=== PATIENT | male | born 1945 | race Caucasian/White ===

== ENCOUNTER 2022-05-16 10:50 | Inpatient (IN) ==
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
[2022-05-16 11:37] LABS: Basophils # (auto) 0.05 K/uL (0-0.2); Basophils % (auto) 0.7 %; Eosinophils # (auto) 0.11 K/uL (0-0.50); Eosinophils % (auto) 1.4 %; Hematocrit (blood only) 46.7 % (42.0-52.0); Hemoglobin 15.5 g/dl (14.0-18.0); Immature Granulocytes # (auto) 0.03 K/uL (0.01-0.20); Immature Granulocytes % (auto) 0.4 %; Lymphocytes # (auto) 1.13 K/uL (1.2-3.4); Lymphocytes % (auto) 14.7 %; Mean Corpuscular Hemoglobin 28.8 pg (25.0-34.0); Mean Corpuscular Hgb Conc 33.2 g/dL (32.0-36.0); Mean Corpuscular Volume 86.8 fL (80.0-100.0); Mean Platelet Volume 9.7 fL (9.4-12.4); Monocytes # (auto) 0.84 K/uL (0.11-0.59); Monocytes % (auto) 10.9 %; Neutrophils # (auto) 5.53 K/uL (1.40-6.50); Neutrophils % (auto) 71.9 %; Platelet Count 204 K/uL (130-400); RDW Coefficient of Variation 14.5 % (11.5-14.5); RDW Standard Deviation 45.9 fL (36.4-46.3); Red Blood Count 5.38 M/uL (4.70-6.10); White Blood Count 7.69 K/ul (4.8-10.8)
--- NOTE | 2022-05-16 11:40 | XRay Report ---
XR foot LT min 3V routine, XR ankle LT min 3V routine CLINICAL HISTORY: L foot and ankle edema, hx gout TECHNIQUE: 3 views of the left foot and 3 views of the left ankle were obtained. Comparison: None available at the time of this dictation. FINDINGS: No fractures are present. Mild degenerative changes are seen most prominent in the interphalangeal irma ints. Soft tissue swelling seen about the foot and ankle. No focal soft tissue mass is seen. IMPRESSION: Degenerative changes compatible with mild osteoarthritis. Diffuse soft tissue swelling without eviden t tophaceous foci. ACT 112: Negative or not required by law. Electronically signed by: Shoaib Zhang M.D. 05/16/2022 11:38 AM
[2022-05-16 11:54] LABS: Albumin Level 4.2 gm/dl (3.4-5.0); BUN Creatinine Ratio 22.7 (10-20); Calcium 10.3 mg/dl (8.5-10.1); Creatinine Clr Calc Pharmacy 52.9 ml/min; Est GFR (African American) 50.6 ml/min; Est GFR (Non-African American) 43.7 ml/min; Globulin 4.2 gm/dl (2.5-4.0); Potassium 3.6 mmol/L (3.5-5.1); Total Protein 8.4 gm/dl (6.0-8.3)
[2022-05-16 12:11] LABS: Appearance Urine Cloudy (Clear); Bacteria Urine Automated Negative (Negative); Blood Urine Negative (Negative); Color Urine Dark Yellow; Glucose Urine UA Negative (Negative); Ketones Urine Trace (Negative); Leukocyte Esterase Urine Trace (Negative); Nitrite Urine Positive (Negative); Protein Urine 1+ (Negative); Specific Gravity Urine 1.025 (1.000-1.030); Urobilinogen Urine Positive (Negative); pH Urine 5.5 (4.5-7.5)
[2022-05-16 12:13] LABS: INR 2.2 (0.9-1.1); Partial Thromboplastin Ratio 1.5; Partial Thromboplastin Time 42.1 Seconds (21.0-31.0); Prothrombin Time 22.9 Seconds (9.0-12.0)
[2022-05-16 12:23] LABS: Bilirubin Urine 1+ (Negative)
[2022-05-16 12:26] LABS: Cast Urine Automated >30 /lpf (0-5)
--- NOTE | 2022-05-16 13:58 | Ultrasound Report ---
LEFT LOWER EXTREMITY VENOUS DOPPLER HISTORY: Acute pain and swelling of the left lower extremity leg pain COMPARISON STUDY: None. FINDINGS: There is normal compressibility, flow, and augmentation within the left lower extremity romulo p venous system. Subcutaneous edema. IMPRESSION: No DVT within the left lower extremity. ACT 112: Negative or not required by law. Electronically signed by: Harpreet Franco M.D. 05/16/2022 1:57 PM
[2022-05-16] MEDS ORDERED: cefTRIAXone SODIUM 2,000 MG/70 ML BAG IV STA (14:13)
[2022-05-16] MEDS ORDERED: HYDROCODONE/ACETAMOPHEN 5/325MG TAB PO STA (14:16)
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
[2022-05-16 15:21] LABS: C Reactive Protein 14.42 mg/dl (0-0.5)
[2022-05-16 18:21] LABS: Estimated Average Glucose 137 mg/dl; Hemoglobin A1C 6.4 % (4.5-5.6)
[2022-05-16] MEDS ORDERED: ACETAMINOPHEN 325 MG TAB PO PRN (19:25)
[2022-05-16] MEDS ORDERED: WARFARIN SOD 5 MG TAB PO SCH (19:30)
[2022-05-16] MEDS: WARFARIN SOD 5 MG TAB PO SCH (20:58)
[2022-05-16] MEDS: ATENOLOL 50 MG TABLET PO SCH (20:59)
[2022-05-16] MEDS: SIMVASTATIN 40 MG TAB PO SCH (20:59)
[2022-05-16] MEDS: CEFEPIME 2,000 MG in SYRINGE 0 ML IV SCH (20:59)
[2022-05-16] MEDS ORDERED: lisinopril 40 MG TAB PO SCH (21:00)
[2022-05-16] MEDS: oxyCODONE HCL IR 5 MG TAB (IMMEDIATE RELEASE) PO PRN (21:10)
[2022-05-16] MEDS: DOXYCYCLINE HYCLATE 100 MG in DEXTROSE 5% 100 ML IV SCH (21:11)
[2022-05-17] MEDS: oxyCODONE HCL IR 5 MG TAB (IMMEDIATE RELEASE) PO PRN ×2 (06:02→19:56)
[2022-05-17 06:41] LABS: INR 2.2 (0.9-1.1); Prothrombin Time 22.2 Seconds (9.0-12.0)
[2022-05-17] MEDS: CHOLECALCIFEROL 1,000 UNITS 25 MCG TAB PO SCH (08:01)
[2022-05-17] MEDS: ATENOLOL 50 MG TABLET PO SCH ×2 (08:01→20:00)
[2022-05-17] MEDS: DOXYCYCLINE HYCLATE 100 MG in DEXTROSE 5% 100 ML IV SCH ×2 (08:05→19:56)
[2022-05-17 08:55] LABS: BUN Creatinine Ratio 26.6 (10-20); Calcium 9.4 mg/dl (8.5-10.1); Creatinine Clr Calc Pharmacy 61.7 ml/min; Est GFR (African American) 61.3 ml/min; Est GFR (Non-African American) 52.9 ml/min; Potassium 3.6 mmol/L (3.5-5.1)
[2022-05-17 08:56] LABS: Basophils # (auto) 0.05 K/uL (0-0.2); Basophils % (auto) 0.6 %; Eosinophils # (auto) 0.14 K/uL (0-0.50); Eosinophils % (auto) 1.8 %; Hemoglobin 13.7 g/dl (14.0-18.0); Immature Granulocytes # (auto) 0.01 K/uL (0.01-0.20); Immature Granulocytes % (auto) 0.1 %; Lymphocytes % (auto) 12.6 %; Mean Corpuscular Hemoglobin 28.7 pg (25.0-34.0); Mean Corpuscular Hgb Conc 33.4 g/dL (32.0-36.0); Mean Corpuscular Volume 85.8 fL (80.0-100.0); Mean Platelet Volume 10.6 fL (9.4-12.4); Monocytes # (auto) 0.78 K/uL (0.11-0.59); Monocytes % (auto) 9.8 %; Neutrophils # (auto) 5.96 K/uL (1.40-6.50); Neutrophils % (auto) 75.1 %; Platelet Count 198 K/uL (130-400); RDW Coefficient of Variation 14.1 % (11.5-14.5); RDW Standard Deviation 44.3 fL (36.4-46.3); Red Blood Count 4.78 M/uL (4.70-6.10); White Blood Count 7.94 K/ul (4.8-10.8)
[2022-05-17] MEDS: OMEGA-3 (PURIFIED FISH OIL) 1 GM CAP PO SCH (09:39)
[2022-05-17] MEDS: CEFEPIME 2,000 MG in SYRINGE 0 ML IV SCH ×2 (09:40→20:00)
[2022-05-17] MEDS ORDERED: LACTATED RINGER'S 1,000 ML IV SCH (11:15)
--- NOTE | 2022-05-17 12:45 | Electrocardiogram Report ---
Test Reason : Blood Pressure : / mmHG Vent. Rate : 079 BPM Atrial Rate : 078 BPM P-R Int : 000 ms QRS Dur : 090 ms QT Int : 372 ms P-R-T Axes : 000 059 028 degrees QTc Int : 426 ms Atrial fibrillation with premature ventricular or aberrantly conducted complexes Abnormal ECG When compared with ECG of 30-SEP-2018 08:42, No significant change was found Confirmed by Obinna Llanos ([id number]) on 05/17/2022 12:45:36 PM Referred By: REFERRED SELF Confirmed By:Obinna Llanos
--- NOTE | 2022-05-17 14:48 | Hospitalist Progress Note ---
Date of Service May 17, 2022 Assessment & Plan (1) Cellulitis of left foot: Plan: 77 y/o male with a PMH of atrial fib on chronic AC, pre diabetes, HTN, CKD, and hyperlipidemia who presented with worsening pain and swelling of left foot. He reports a history of gout but outpatient records from PCP extensively reviewed without clear diagnosis of this previously. Similar symptoms diagnosed previously as left foot cellulitis and treated with cephalexin and ceftriaxone. Clinical picture at present seems most consistent with cellulitis with worsening of symptoms noted during ED course. ESR and CRP both markedly elevated. Patient admitted to medical Continue IV cefepime and doxycycline left foot w/ much less erythema, edema and tenderness Likely can transition to oral antibiotics tomorrow and possible discharge Blood culture pending ESR 80, CRP 14 ICE TID, elevate (2) Acute kidney injury superimposed on CKD: Plan: Cr improving to 1.28 today, from 1.5 on admit will resume chlorthalidone and lisinopril in a.m. (3) Permanent atrial fibrillation: Plan: Continue outpatient atenolol for rate control INR therapeutic continue home dose warfarin (4) Essential hypertension: Plan: Continue outpatient meds (5) Pure hypercholesterolemia: Plan: Continue statin therapy (6) Chronic anticoagulation: Plan: Continue warfarin Daily INR (7) Pre-diabetes: Plan: A1c 6.4 A1c has been elevated above 6.0 since February 2010 We will ask extension educator for prediabetes education to improve infection control Dispo: To home when medically stable Full code PCP: Dr. Powell A total of 40 minutes was spent with greater than 50% of that time personally viewing all current laboratory work and diagnostic imaging studies obtained in the ED. Additionally, I was able to view the patients past medication reconciliation and history with direct visualization in the patients chart. Included in the time above, a portion of that time was spent assessing the patient while discussing and collaborating with specialists, if necessary, and making medical decision making on treatment plan. All of the above was collaborated with Dr. Marrero. Please see addendum for further details. Admission and Anticipated Discharge Date Admission Date: May 16, 2022 Supervising Physician Co-Signing Physician Notes Pt seen and examined by me, care coordinated w/ Tarah Martinez PA-C, please refer to her note above for further detail. Patient is currently laying in bed, in no acute distress. Declined ice, however now agreeable. Edema is decreased and erythema is significantly decreased. Still some tenderness to palpation. Patient otherwise denies any fevers chills chest pain shortness of breath. Lungs are clear to auscultation, heart sounds regular. Abdomen soft nontender nondistended. Patient is alert oriented answers appropriately. We will continue with IV antibiotics, leg elevation, ice, and most likely plan to discharge tomorrow on p.o. antibiotics. MD Elida Subjective Patient was seen and evaluated in room 356 Follow-up left foot cellulitis. Erythema, edema and tenderness improved. Pt denies fever, chills, sweats, lightheadedness, dizziness, chest pain, shortness breath, nausea, vomit, abdominal pain. Tolerating diet. Review of Systems Review of Systems: All systems reviewed & are unremarkable except as noted in HPI & below Physical Exam Physical Exam: Gen: WD/WN, NAD, A&O x3 HEENT: Normocephalic, atraumatic, conjunctivae moist, sclerae anicteric, mucous membranes moist. Lung: Clear to Auscultation bilaterally, no wheezes/rales/rhonchi Heart: Irregular rate, irregular rhythm, no murmurs, rubs, or gallops Abdomen: Soft, NT, ND +BS x 4 Extremities: Bilateral chronic venous stasis changes, left ankle and pedal edema, slight warmth, minimal erythema (improved), pain to palpation Skin: Warm, no rash Results & Data Results & Data ([facility]) Vital Signs (Past 12 Hours) Vital Signs Temp Pulse Resp BP Pulse Ox O2 Del Method 05/17/22 07:30 37.0 C 88 16 113/70 95 Room Air Laboratory Results Short CBC 05/17/22 Range/Units 08:06 WBC 7.94 (4.8-10.8) K/ul Hgb 13.7 L (14.0-18.0) g/dl Hct 41.0 L (42.0-52.0) % Plt Count 198 (130-400) K/uL BMP 05/17/22 08:06 Sodium 137 Potassium 3.6 Chloride 98 Carbon Dioxide 37 H BUN 34 H Creatinine 1.28 Glucose 103 H Calcium 9.4 Medications Administered Current Inpatient Medications Acetaminophen (Acetaminophen 325 Mg Tab) 650 mg PO Q4H PRN PRN Reason: pain/fever Stop: 06/15/22 19:24 Atenolol (Atenolol 50 Mg Tablet) 100 mg PO BID [facility] Stop: 06/15/22 20:59 Last Admin: 05/17/22 08:01 Dose: 100 mg Fish Oil ([place]-3 (Purified Fish Oil) 1 Gm Cap) 1 gm PO DAILY [facility] Stop: 06/16/22 08:59 Last Admin: 05/17/22 09:39 Dose: 1 gm Cefepime HCl 2,000 mg/ Syringe 20 mls @ 5 mls/min IV Q12 [facility]; Protocol Stop: 05/23/22 20:59 Last Admin: 05/17/22 09:40 Dose: 5 mls/min Doxycycline Hyclate 100 mg/ (Dextrose) 110 mls @ 50 mls/hr IV Q12H [facility] Stop: 05/23/22 19:29 Last Infusion: 05/17/22 10:38 Dose: Infused Lactated Ringer's (Lr) 1,000 mls @ 80 mls/hr IV .[id number] [facility] Stop: 05/17/22 23:44 Last Admin: 05/17/22 11:24 Dose: 80 mls/hr Lisinopril (Lisinopril 40 Mg Tab) 40 mg PO QPM [facility] Stop: 06/15/22 20:59 Last Admin: 05/16/22 20:58 Dose: 40 mg Oxycodone HCl (Oxycodone Hcl Ir 5 Mg Tab (Immediate Release)) 5 mg PO Q8H PRN PRN Reason: Pain Stop: 05/30/22 16:33 Last Admin: 05/17/22 06:02 Dose: 5 mg Simvastatin (Simvastatin 40 Mg Tab) 40 mg PO PM [facility] Stop: 06/15/22 20:59 Last Admin: 05/16/22 20:59 Dose: 40 mg Vitamin D (Cholecalciferol 1,000 Units 25 Mcg Tab) 1,000 units PO DAILY [facility] Stop: 06/16/22 08:59 Last Admin: 05/17/22 08:01 Dose: 1,000 units Warfarin Sodium (Warfarin Sod 5 Mg Tab) 5 mg PO [id number] [facility] Stop: 06/15/22 19:29 Last Admin: 05/16/22 20:58 Dose: 5 mg Warfarin Sodium (Warfarin Sod 5 Mg Tab) 7.5 mg PO Th@1600 [facility] Stop: 06/18/22 15:59
[2022-05-17] MEDS: WARFARIN SOD 5 MG TAB PO SCH (16:18)
[2022-05-17] MEDS: SIMVASTATIN 40 MG TAB PO SCH (20:00)
[2022-05-17 20:02] VITALS: O2SAT 94
[2022-05-18 07:23] VITALS: PULSE 89; TEMP 98.2
[2022-05-18 08:25] LABS: Basophils # (auto) 0.05 K/uL (0-0.2); Basophils % (auto) 0.7 %; Eosinophils # (auto) 0.12 K/uL (0-0.50); Eosinophils % (auto) 1.6 %; Hematocrit (blood only) 40.7 % (42.0-52.0); Immature Granulocytes # (auto) 0.03 K/uL (0.01-0.20); Immature Granulocytes % (auto) 0.4 %; Lymphocytes # (auto) 1.02 K/uL (1.2-3.4); Lymphocytes % (auto) 13.3 %; Mean Corpuscular Hgb Conc 34.4 g/dL (32.0-36.0); Mean Corpuscular Volume 84.3 fL (80.0-100.0); Monocytes # (auto) 0.87 K/uL (0.11-0.59); Monocytes % (auto) 11.3 %; Neutrophils % (auto) 72.7 %; Platelet Count 178 K/uL (130-400); RDW Coefficient of Variation 13.9 % (11.5-14.5); Red Blood Count 4.83 M/uL (4.70-6.10); White Blood Count 7.69 K/ul (4.8-10.8)
[2022-05-18] MEDS: OMEGA-3 (PURIFIED FISH OIL) 1 GM CAP PO SCH (08:25)
[2022-05-18] MEDS: CHOLECALCIFEROL 1,000 UNITS 25 MCG TAB PO SCH (08:25)
[2022-05-18] MEDS: ATENOLOL 50 MG TABLET PO SCH (08:25)
[2022-05-18] MEDS: DOXYCYCLINE HYCLATE 100 MG in DEXTROSE 5% 100 ML IV SCH (08:32)
[2022-05-18] MEDS: CEFEPIME 2,000 MG in SYRINGE 0 ML IV SCH (08:32)
[2022-05-18 08:36] LABS: BUN Creatinine Ratio 26.6 (10-20); Calcium 9.8 mg/dl (8.5-10.1); Creatinine Clr Calc Pharmacy 72.5 ml/min; Est GFR (African American) 74.4 ml/min; Est GFR (Non-African American) 64.2 ml/min; Magnesium 1.9 mg/dl (1.7-2.4); Phosphorus 2.8 mg/dl (2.5-4.9)
[2022-05-18 08:53] LABS: INR 2.2 (0.9-1.1); Prothrombin Time 22.9 Seconds (9.0-12.0)
[2022-05-18] MEDS ORDERED: CHLORTHALIDONE 25 MG TAB PO SCH (09:00)
--- NOTE | 2022-05-18 11:10 | Discharge Summary ---
Discharge Summary Date of Service May 18, 2022 Notes For Next Care Provider Patient admitted for left lower extremity cellulitis. Initially placed on IV doxycycline as well as cefepime due to underlying prediabetes. Symptoms improved rapidly and is being transition to oral doxycycline and oral cefuroxime for additional 7 days as outpatient. During initial admission he did have mild elevation in creatinine which has since resolved. Creatinine on day of discharge was 1.09. His INR remained therapeutic throughout hospital stay on current home regimen of warfarin. His uric acid was elevated at 8.0. There was question if symptoms are related to gout; however likely secondary to underlying cellulitis. Although imaging of L ankle reveal tophaceous deposits. Recommend initiating patient of uric acid lower therapy. Also recommend discontinuing patients Chlorthalidone as this increases risk for hyperuricemia and may precipitate further gout attacks in future. Medication Changes From Visit Doxycycline 100 mg twice daily for 7 days. Cefuroxime 500 mg twice daily for 7 days. Probiotic daily for 7 days for GI health. Admission HPI Per Admitting Provider This is a 77 y/o male with a PMH of atrial fibrillation on chronic anticoagulation, HTN, CKD 3 (baseline creatinine ~1.2), hypercholesterolemia, and PTSD who presents to the ED with worsening left foot pain and swelling. Per pt, he has a history of gout with two prior episodes of similar symptoms in the last few years, one before the pandemic and one during. Review of outpatient records however shows a history of left foot cellulitis treated with cephalexin and ceftriaxone most recently. No clear diagnosis of gout noted in PCP notes. Current symptoms started about 8 days ago with pain and swelling between his second and third toes on the left foot. Since then, the symptoms have gradually worsened. He has also noted overlying erythema that is waxing and waning but has been worsening since being in the ED today. Pain is worse with weightbearing and he has been using crutches to ambulate due to the severity of the pain. He denies fevers, chills, sweats but his reports that he has been "cold and clammy" at times. He has been taking hydrocodone for the pain, which has helped. His appetite has been markedly decreased, which he notes is very unusual for him. No nausea or vomiting. He also notes that his urine has been darker than usual and has a foul odor but denies dysuria or hematuria. No change in frequency. He reports that he has been staying hydrated. Of note, he had an A1c on 03/15/22 that was 6.4, which pt reports is improved from prior. He does not routinely follow his blood sugars at home. Admission Exam Per Admitting Provider Review of Systems: All systems reviewed & are unremarkable except as noted in HPI & below Constitutional: + fatigue and + anorexia; no fever and no chills Eyes: no diplopia and no worsening vision Ear, Nose, Mouth, Throat: no nasal congestion and no nasal discharge Respiratory: no cough and no dyspnea Cardiovascular: no chest pain, no palpitations and no syncope Gastrointestinal: no abdominal pain, no nausea, no vomiting and no diarrhea/loose stools Genitourinary: + as per Subjective / HPI; no dysuria or no hematuria Musculoskeletal: left foot pain and swelling as per HPI Integumentary: as per Subjective / HPI; no yellowing of the skin Neurologic: no dizziness and no headache(s) Psychiatric: no depression and no anxiety Principal Dx & Hospital Course #1 = Principal Diagnosis (1) Cellulitis of left foot: This is a 77 y/o male with a PMH of atrial fib on chronic AC, Pre diabetes, HTN, CKD, and hyperlipidemia who presented with worsening pain and swelling of left foot. He reports a history of gout but outpatient records from PCP extensively reviewed without clear diagnosis of this previously. Similar symptoms diagnosed previously as left foot cellulitis and treated with cephalexin and ceftriaxone. Clinical picture at present seems most consistent with cellulitis with worsening of symptoms noted during ED course. ESR and CRP both markedly elevated on admission. He was started on IV doxycycline and cefepime with significant improvement in erythema and pain. Blood cultures remain negative. On day of discharge he is being transitioned to oral doxycycline and cefuroxime to complete a total of 10 days of antibiotic therapy. He did have elevated uric acid at 8.0 on admission. There was question if symptoms were not related to gout versus acute cellulitis however symptoms seem most consistent with cellulitis due to similar presentation in the past and significant improvement with antibiotic therapy. He did have mild GABE on admission with creatinine up to 1.50. This resolved with increased fluid intake and holding of patient's lisinopril and chlorthalidone. These were both resumed on day of discharge. He remained in atrial fibrillation throughout hospital stay and remained anticoagulated with therapeutic INR. He will continue his outpatient Coumadin regimen and follow-up closely with [facility] pharmacy. On day of discharge patient was in good spirits without acute complaints. He still does have mild left foot pain but is able to ambulate with a single crutch. He will be seen and evaluated by physical therapy prior to discharge to deemed safe to return home alone. He will follow-up closely with PCP. On day of discharge she remained hemodynamically stable, blood pressure 116/74 and temp 36.8 (2) Acute kidney injury superimposed on CKD: (3) Permanent atrial fibrillation: (4) Essential hypertension: (5) Pure hypercholesterolemia: (6) Chronic anticoagulation: (7) Elevated hemoglobin A1c: Discharge Exam Gen: WD/WN, NAD, A&O x3 HEENT: Normocephalic, atraumatic, conjunctivae moist, sclerae anicteric, mucous membranes moist. Lung: Clear to Auscultation bilaterally, no wheezes/rales/rhonchi Heart: Irregular rate, irregular rhythm, no murmurs, rubs, or gallops Abdomen: Soft, NT, ND +BS x 4 Extremities: Bilateral chronic venous stasis changes, left ankle and pedal edema, no further erythema or warmth Skin: Warm, no rash Updated Medication List Medication Instructions Recorded Confirmed Type atenolol 100 mg tablet 100 mg PO BID 09/30/18 05/16/22 History chlorthalidone 25 mg tablet 25 mg PO DAILY 09/30/18 05/16/22 History cholecalciferol (vitamin D3) 25 1,000 unit PO DAILY 09/30/18 05/16/22 History mcg (1,000 unit) capsule lisinopril 40 mg tablet 40 mg PO QPM 09/30/18 05/16/22 History omega 0-leg-zvi-fish oil 1,000 mg 1 cap PO DAILY 09/30/18 05/16/22 History (120 mg-180 mg) capsule (Fish Oil) simvastatin 40 mg tablet 40 mg PO PM 09/30/18 05/16/22 History warfarin 5 mg tablet 5 mg PO UD 09/30/18 05/16/22 History sildenafil 50 mg tablet 50 mg PO DAILY PRN Erectile 05/16/22 05/16/22 History Dysfunction Saccharomyces boulardii 250 mg 250 mg PO DAILY #7 caps 05/18/22 Rx capsule (Florastor) cefuroxime axetil 500 mg tablet 500 mg PO BID 7 days #14 tabs 05/18/22 Rx doxycycline hyclate 100 mg capsule 100 mg PO BID 7 days #14 caps 05/18/22 Rx Hospital Stay Data Consultations 05/16/22 14:37 ED Decision to Admit Stat Diagnostic Imagining Performed Ankle X-Ray 05/16/22 11:10 XR foot LT min 3V routine, XR ankle LT min 3V routine CLINICAL HISTORY: L foot and ankle edema, hx gout TECHNIQUE: 3 views of the left foot and 3 views of the left ankle were obtained. Comparison: None available at the time of this dictation. FINDINGS: No fractures are present. Mild degenerative changes are seen most prominent in the interphalangeal joints. Soft tissue swelling seen about the foot and ankle. No focal soft tissue mass is seen. IMPRESSION: Degenerative changes compatible with mild osteoarthritis. Diffuse soft tissue swelling without evident tophaceous foci. ACT 112: Negative or not required by law. Electronically signed by: Shoaib Zhang M.D. 05/16/2022 11:38 AM Foot X-Ray 05/16/22 11:10 XR foot LT min 3V routine, XR ankle LT min 3V routine CLINICAL HISTORY: L foot and ankle edema, hx gout TECHNIQUE: 3 views of the left foot and 3 views of the left ankle were obtained. Comparison: None available at the time of this dictation. FINDINGS: No fractures are present. Mild degenerative changes are seen most prominent in the interphalangeal joints. Soft tissue swelling seen about the foot and ankle. No focal soft tissue mass is seen. IMPRESSION: Degenerative changes compatible with mild osteoarthritis. Diffuse soft tissue swelling without evident tophaceous foci. ACT 112: Negative or not required by law. Electronically signed by: Shoaib Zhang M.D. 05/16/2022 11:38 AM Venous Doppler Study 05/16/22 12:20 LEFT LOWER EXTREMITY VENOUS DOPPLER HISTORY: Acute pain and swelling of the left lower extremity leg pain COMPARISON STUDY: None. FINDINGS: There is normal compressibility, flow, and augmentation within the left lower extremity deep venous system. Subcutaneous edema. IMPRESSION: No DVT within the left lower extremity. ACT 112: Negative or not required by law. Electronically signed by: Harpreet Franco M.D. 05/16/2022 1:57 PM Pending Results Patient Have Any Pending Studies at Discharge: No Discharge Instructions Given to Patient (Per Discharging Provider) MEDICATION CHANGES: Doxycycline 100 mg twice daily for 7 days. Cefuroxime 500 mg twice daily for 7 days. Probiotic daily for 7 days for GI health. Continue all other home medications. SUMMARY OF TEST RESULTS: You were admitted to hospital due to Left Foot Cellulitis. You were treated with IV antibiotics and your symptoms improved. You are being discharged with additional 7 days of antibiotics. PENDING TEST RESULTS: None RECOMMENDATIONS FOR FOLLOW-UP: Please follow up with PCP as scheduled. Complete antibiotics in entirety. Your A1C was 6.4. This classifies as pre diabetic. Recommend diet and exercise to help prevent T2DM. Recommend close follow up with PCP and repeat a1c in 6 months. Your INR on day of discharge was 2.2. Recommend continuing home regimen of warfarin and following up with [facility] pharmacist as scheduled. Current Warfarin Regimen is 7.5mg every and 5mg all other days. Your Next [facility] appt is on 06/23/22. Your Uric acid was elevated at 8.0. Normal is 2.6 to 7.2. You currently are not receiving any treatment for elevated uric acid. You have evidence of gout on Xray of ankle. Recommend discussion with PCP regarding elevated uric acid and starting on uric acid lowering therapy. Also recommend discussing with your Primary Care Provider about switching your chlorthalidone to another blood pressure lowering medication as this can also elevate your uric acid level. OTHER INSTRUCTIONS: Seek medical attention if you have: * temperature above 101 * chest pain or trouble breathing * abdominal pain, nausea, vomiting * diarrhea, dark stools or bloody stools * any unanswered questions or concerns Call 911 if symptoms are severe. Please take good care of yourself. It has been a pleasure taking care of you. Please take care of yourself. If you have any questions regarding your recent hospitalization please contact [facility] and request lovely Burrell[facility] @ [phone]. Piper Martinez PA-C Total Time Total Time Spent Total Time Spent (In Minutes): 45 minutes Supervising Physician Co-Signing Physician Notes Patient is seen and examined at bedside. States having significant improvement of right lower extremity pain, redness. Denies any discharge. No other complaints. Eager to get discharged. On exam patient is moderately built and nourished, no apparent distress, normocephalic/atraumatic, normal breath sounds, clear to auscultation, S1-S2, no murmur, 1+ bilateral lower extremity edema present, lower extremity erythema much improvement, abdomen soft, nontender, normal bowel sounds, alert, awake, oriented, grossly no focal deficits. Patient is admitted for management of left foot cellulitis, GABE. Continue antibiotics as above. Advised to follow-up with PCP for further management of hyperuricemia. Advised to be transition from chlorthalidone to another diuretic to prevent worsening of hyperuricemia. I personally reviewed the record. Patient is interviewed and examined at bedside. Patient's care is coordinated with Piper Martinez PA-C. Please refer to the documentation above for details of patient's presentation and for discussion of other issues.
[2022-05-18 11:20] VITALS: BP 109/71
[2022-05-19 13:48] LABS: A calco-baum cmplx NotReported Not Detected (NotDetected); Bact fragilis Not Reported Not Detected (NotDetected); C auris Not Reported Not Detected (NotDetected); Calbicans Not Reported Not Detected (NotDetected); Candida glabrata Not Reported Not Detected (NotDetected); Candida krusei Not Reported Not Detected (NotDetected); Cneoformans/gatti Not Reported Not Detected (NotDetected); Cparapsilosis Not Reported Not Detected (NotDetected); Ctropicalis Not Reported Not Detected (NotDetected); E cloacae compx Not Reported Not Detected (NotDetected); Efaecalis Not Reported Not Detected (NotDetected); Efaecium Not Reported Not Detected (NotDetected); Enterobacterales Not Reported Not Detected (NotDetected); Escherichia coli Not Reported Not Detected (NotDetected); H influenzae Not Reported Not Detected (NotDetected); K aerogenes Not Reported Not Detected (NotDetected); Koxytoca Not Reported Not Detected (NotDetected); Kpneumoniae grp Not Reported Not Detected (NotDetected); Lmonocyt Not Reported Not Detected (NotDetected); N meningitidis Not Reported Not Detected (NotDetected); P aeruginosa Not Reported Not Detected (NotDetected); Proteus spp Not Reported Not Detected (NotDetected); Salmonella spp Not Reported Not Detected (NotDetected); Smarcescens Not Reported Not Detected (NotDetected); Staph lugdunensis Not Reported Not Detected (NotDetected); Staph spp. Not Reported DETECTED (NotDetected); Staphaureus Not Reported Not Detected (NotDetected); Staphepi Not Reported DETECTED (NotDetected); Staphylococcus epidermidis DETECTED (NotDetected); Staphylococcus spp. DETECTED (NotDetected); Stenmaltophilia Not Reported Not Detected (NotDetected); Strep agal(GrpB) Not Reported Not Detected (NotDetected); Strep pneum Not Reported Not Detected (NotDetected); Strep pyog (GrpA) Not Reported Not Detected (NotDetected); Strep spp Not Reported Not Detected (NotDetected); mecAC Resistant Gene Not Detected (NotDetected)
[2022-05-19] MEDS ORDERED: WARFARIN SOD 5 MG TAB PO SCH ×2 (16:00)
== END 2022-05-18 14:37 | disposition home or self-care (01) | DRG 603 ==
LOC: ED 10:50 → EDINP 15:56 → SUATTDRO 15:56 → 3W 19:25

== ENCOUNTER 2023-07-21 00:49 | Inpatient (IN) ==
[2023-07-21] MEDS: ONDANSETRON INJ 2 MG/ML 2 ML VIAL IV STA (01:20)
[2023-07-21] MEDS: HYDROmorphone INJ 1 MG/ML SYRINGE IV STA (01:20)
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
[2023-07-21 01:33] LABS: Basophils # (auto) 0.04 K/uL (0.00-0.20); Basophils % (auto) 0.3 %; Eosinophils # (auto) 0.15 K/uL (0.00-0.50); Eosinophils % (auto) 1.3 %; Immature Granulocytes # (auto) 0.05 K/uL (0.01-0.20); Immature Granulocytes % (auto) 0.4 %; Lymphocytes # (auto) 1.11 K/uL (1.20-3.40); Lymphocytes % (auto) 9.7 %; Mean Corpuscular Hemoglobin 28.9 pg (25.0-34.0); Mean Corpuscular Hgb Conc 33.3 g/dL (32.0-36.0); Mean Corpuscular Volume 86.7 fL (80.0-100.0); Monocytes # (auto) 1.02 K/uL (0.11-0.59); Monocytes % (auto) 8.9 %; Neutrophils # (auto) 9.06 K/uL (1.40-6.50); Neutrophils % (auto) 79.4 %; Platelet Count 191 K/uL (130-400); RDW Coefficient of Variation 14.8 % (11.5-14.5); RDW Standard Deviation 46.8 fL (36.4-46.3); Red Blood Count 5.19 M/uL (4.70-6.10); White Blood Count 11.43 K/ul (4.8-10.8)
[2023-07-21 01:46] LABS: BUN Creatinine Ratio 25.7 (10-20); Calcium 10.1 mg/dl (8.6-10.3); Est GFR (African American) 51.1 ml/min; Est GFR (Non-African American) 44.1 ml/min; Potassium 3.9 mmol/L (3.5-5.1)
[2023-07-21] MEDS: SODIUM CHLORIDE 0.9% 500 ML IV ONE ×2 (02:39→03:12)
[2023-07-21] MEDS ORDERED: SODIUM CHLORIDE 0.9% 500 ML IV SCH (03:15)
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
[2023-07-21] MEDS ORDERED: POLYETHYLENE (MIRALAX) 17 GM PACK PO PRN (05:27)
[2023-07-21] MEDS: SODIUM CHLORIDE 0.9% 1,000 ML IV SCH (05:45)
[2023-07-21 07:28] LABS: Basophils # (auto) 0.05 K/uL (0.00-0.20); Basophils % (auto) 0.5 %; Eosinophils # (auto) 0.07 K/uL (0.00-0.50); Eosinophils % (auto) 0.7 %; Hematocrit (blood only) 42.3 % (42.0-52.0); Hemoglobin 13.8 g/dl (14.0-18.0); Immature Granulocytes # (auto) 0.06 K/uL (0.01-0.20); Immature Granulocytes % (auto) 0.6 %; Lymphocytes # (auto) 0.94 K/uL (1.20-3.40); Lymphocytes % (auto) 9.4 %; Mean Corpuscular Hemoglobin 28.9 pg (25.0-34.0); Mean Corpuscular Hgb Conc 32.6 g/dL (32.0-36.0); Mean Corpuscular Volume 88.5 fL (80.0-100.0); Mean Platelet Volume 10.3 fL (9.4-12.4); Monocytes % (auto) 10.1 %; Neutrophils # (auto) 7.83 K/uL (1.40-6.50); Neutrophils % (auto) 78.7 %; Platelet Count 167 K/uL (130-400); RDW Coefficient of Variation 14.9 % (11.5-14.5); RDW Standard Deviation 48.5 fL (36.4-46.3); Red Blood Count 4.78 M/uL (4.70-6.10); White Blood Count 9.95 K/ul (4.8-10.8)
[2023-07-21] MEDS: CHOLECALCIFEROL 25 MCG (1000 UNITS) TAB PO SCH (08:32)
[2023-07-21] MEDS: SACCHAROMYCES BOULARDII 250 MG CAP PO SCH (08:32)
[2023-07-21] MEDS: COLCHICINE 0.6 MG TAB PO SCH (08:32)
[2023-07-21] MEDS: ATENOLOL 50 MG TABLET PO SCH (08:32)
[2023-07-21] MEDS: TAMSULOSIN HCL 0.4 MG CAP PO SCH (08:32)
[2023-07-21 08:33] LABS: Anion Gap 6 (3-11); Blood Urea Nitrogen 36 mg/dl (6-23); Calcium 9.3 mg/dl (8.6-10.3); Carbon Dioxide 32 mmol/L (21-32); Chloride 102 mmol/L (98-107); Est GFR (African American) 52.8 ml/min; Est GFR (Non-African American) 45.5 ml/min; Glucose 115 mg/dl (70-99(Fasting)); Magnesium 1.9 mg/dl (1.7-2.4); Sodium 140 mmol/L (136-145)
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
[2023-07-21] MEDS ORDERED: allopurinoL 100 MG TAB PO SCH (09:00)
[2023-07-21] MEDS: allopurinoL 100 MG TAB PO SCH (09:12)
[2023-07-21] MEDS: MoRPHine SULFATE 4 MG/ML 1 ML CARP\\VIAL IV PRN (11:10)
[2023-07-21] MEDS: ACETAMINOPHEN 325 MG TAB PO PRN (11:49)
--- NOTE | 2023-07-21 15:11 | Hospitalist Progress Note ---
Date of Service July 21, 2023 Assessment & Plan (1) Gross hematuria: Plan: 78-year-old male with past medically significant for type 2 diabetes, hypercholesteremia, history of gout, hypertension, permanent atrial fibrillation, obesity, CKD stage III, chondrocalcinosis due to pyrophosphate crystals, history of colonic polyps, PTSD comes because of urinary retention and gross hematuria. Patient presents with 6 days of hematuria and eventually developed urinary retention. In the ED, Siegel catheter was placed and patient was discharged home. Patient came back to the hospital as his Siegel catheter was blocked. Patient was placed on continuous bladder irrigation with exchange of Siegel catheter and was admitted to telemetry for Gross hematuria Bladder outlet obstruction s/p Siegel Acute UTI Patient presents with 6 days of hematuria and eventually developed urinary retention. In the ED, Siegel catheter was placed and patient was discharged home. Patient came back to the hospital as his Siegel catheter was blocked. Hemoglobin slightly down titrated from 15.3-13.8 CT abdomen pelvis in the ED showed moderately enlarged prostate with malpositioned Siegel balloon within the prostate. Distended bladder with adjacent stranding and moderate bilateral hydronephrosis next Urinalysis suggestive of infection Currently continuous bladder irrigation Urology consulted; recommended to monitor Siegel catheter. No acute intervention at this time. Hematuria workup as outpatient with cystoscopy evaluation and CT renal protocol/urogram as outpatient Continue on ceftriaxone. Will follow-up on urine culture and blood culture History of A-fib EKG on admission shows atrial fibrillation On atenolol and Coumadin INR 1.5 Holding Coumadin for hematuria Last dose of Coumadin 2 days ago Discussed with patient regarding risks of stroke while he is off anticoagulation due to hematuria. He acknowledges the risks and verbalized his understanding. We discussed to hold off on anticoagulation till hematuria improves Type 2 diabetes Hold home medications Sliding scale Will monitor Hypertension Had an episode of hypotension holding lisinopril and chlorthalidone Continue atenolol with holding parameters Hold lisinopril and chlorthalidone Will monitor GABE on CKD stage III Baseline creatinine 1.3 Presented with creatinine 1.48 Holding chlorthalidone lisinopril Will follow repeat labs Gout On allopurinol and colchicine Hyperlipidemia On statin DVT prophylaxis SCDs Disposition Med/telemetry. Full code Time spent evaluating patient, direct bedside care, chart review, placing orde rs, interpretation of diagnostic studies, discussion with consultants, patient, and family members, as well as other required patient management activities is 50 minutes Please note the above document was generated using voice recognition software. It may contain grammatical, syntax or spelling errors. Any formal questions or concerns about the content, text or information contained within the body of this dictation should be directly addressed to the provider for clarification Admission and Anticipated Discharge Date Admission Date: July 21, 2023 Subjective Patient seen and examined at bedside. He reports he is comfortable presently. Reports that pain has improved Continues to be on bladder irrigation presently Review of Systems Review of Systems: All systems reviewed & are unremarkable except as noted in Subjective Physical Exam Physical Exam: Constitutional: Alert oriented x 3; not in distress. Respiratory: normal respiratory effort, lungs clear to auscultation, no wheeze, rales, rhonchi. Normal insp/exp effort, no accessory muscle use Cardiovascular: Irregular, no murmur, no edema Vessels: no JVD or carotid bruit Chest: normal inspection of chest Abdomen: Soft, nontender. Siegel in place draining red urine Musculoskeletal: no cyanosis or clubbing, extremities motor strength 5/5 Skin: no rashes, warm and dry normal turgor Neurologic: PERRL, EOMI, accommodation nl, no face palsy, no dysarthria CN's II- XI intact bilaterally and moves all extremities Psychiatric: A+Ox3, euthymic affect Results & Data Results & Data Vital Signs (Past 12 Hours) Vital Signs Temp Pulse Pulse Resp BP BP Pulse Ox 07/21/23 11:41 38.1 C H 100 H 16 126/80 90 07/21/23 08:04 37.1 C 88 18 135/82 91 07/21/23 07:30 87 07/21/23 05:27 37.1 C 18 113/71 93 07/21/23 05:14 84 2 L 07/21/23 05:00 111/77 07/21/23 05:00 88 19 100 07/21/23 04:50 92 H 19 100 07/21/23 04:40 84 21 99 07/21/23 04:30 84 13 99 07/21/23 04:30 113/64 07/21/23 04:20 88 12 99 07/21/23 04:10 86 13 99 07/21/23 04:00 84 14 98 07/21/23 04:00 110/69 07/21/23 03:50 85 13 98 07/21/23 03:45 80 9 L 98 07/21/23 03:45 113/61 07/21/23 03:40 98 07/21/23 03:40 106/72 07/21/23 03:35 103/65 07/21/23 03:35 97 H 97 07/21/23 03:30 83 98 07/21/23 03:30 97/65 L 07/21/23 03:25 104/61 07/21/23 03:25 88 7 L 97 07/21/23 03:20 81 20 106/71 97 07/21/23 03:15 84 16 99/64 L 97 07/21/23 03:10 91 H 23 97/66 L 97 07/21/23 03:05 89 24 97 07/21/23 03:05 99/60 L O2 Del Method O2 Flow Rate 07/21/23 11:41 Room Air 07/21/23 08:04 Room Air 07/21/23 07:30 07/21/23 05:27 Room Air 07/21/23 05:14 07/21/23 05:00 07/21/23 05:00 07/21/23 04:50 07/21/23 04:40 07/21/23 04:30 07/21/23 04:30 07/21/23 04:20 07/21/23 04:10 07/21/23 04:00 07/21/23 04:00 07/21/23 03:50 07/21/23 03:45 07/21/23 03:45 07/21/23 03:40 07/21/23 03:40 07/21/23 03:35 07/21/23 03:35 07/21/23 03:30 07/21/23 03:30 07/21/23 03:25 07/21/23 03:25 07/21/23 03:20 Nasal Cannula 2 07/21/23 03:15 07/21/23 03:10 07/21/23 03:05 07/21/23 03:05
[2023-07-21] MEDS: PIPER/TAZO 4.5g in D5W MINI-B 100 ML IV ONE (17:48)
[2023-07-21] MEDS ORDERED: cefTRIAXone SODIUM 2,000 MG/50 ML BAG IV SCH (19:00)
--- NOTE | 2023-07-21 21:56 | Urology Progress Note ---
Date of Service July 21, 2023 Assessment & Plan (1) Hematuria: (2) Acute urinary retention: Plan Obstruction of three-way Siegel catheter secondary to clot in position Approximately 2 inches of the primary Siegel catheter tubing was visible distal to the meatus Given my inability to salvage this catheter with manual irrigation I removed the catheter I did give him an opportunity to void spontaneously at that time, he was unsuccessful so I proceeded to replace a Siegel catheter His prostate is extremely large, I measured the prostatic length to be approximately [address] Given this, I fear that his issue is not clot obstruction as much as it is positioning of the catheter In turn, I placed a 20 [place] coud catheter to the hub. I inflated the balloon. There was immediately a drainage of approximately 600 cc of urinecranberry juice colored with scant clot. I attempted to pull back on the catheter to seat the balloon against the prostate and there is a 0 mobility implying the full length of the catheter is needed to advance beyond the prostatic urethra. I then proceeded to irrigate approximately 100 cc of clot out of his bladder. The catheter then irrigated freely and without difficulty. He had an immediate improvement in his overall sensation and pain. Planleave this catheter in place I hope that an appropriately placed catheter will allow some resolution of the underlying hematuria Continue holding Coumadin for now Manually irrigate as needed clot obstruction and discomfort I will reevaluate him again tomorrow morning Admission and Anticipated Discharge Date Admission Date: July 21, 2023 Subjective Called into the hospital for acute evaluation secondary to an obstructed Siegel catheter that could not be resolved by in-house staff He has been on CBI with a 20 [place] three-way hematuria catheter in place His initial ER visit prompted catheter placement but the Siegel balloon was positioned in the prostatehe has an enormous prostate which certainly was the underlying cause for the challenging catheter placement His catheter did seem to drain well after it was exchanged for a 20 [place] three-way catheter but the nursing staff reports that for the past hour he has had no drainage He is quite uncomfortable and feels very distended Physical Exam Physical Exam: Three-way 20 [place] hematuria catheter in place with no drainage Attempted irrigation through the primary drainage portunsuccessful Attempted manual irrigation through the input port, unsuccessful Results & Data Vital Signs (Past 12 Hours) Vital Signs Temp Pulse Pulse Resp BP Pulse Ox O2 Del Method 07/21/23 19:50 36.4 C L 90 18 160/91 H 92 Room Air 07/21/23 16:31 37.0 C 101 H 18 127/79 90 Room Air 07/21/23 16:15 93 H 07/21/23 11:41 38.1 C H 100 H 16 126/80 90 Room Air PG Care Time/CCT Total # of Minutes Spent Total Time Spent with Patient: Total time spent is greater than 50% in coordination of care (as documented) at patient's floor/unit and/or counseling patient: Coding Level of Care Code 44466 SUB INP/OBS CARE 3/50MIN Diagnoses Hematuria R31.9 Acute urinary retention R33.8
[2023-07-21] MEDS: PIPERACILLIN/TAZOBACTAM 4.5 GM in DEXTROSE 5% MINI-B 100 ML IV SCH (22:28)
[2023-07-21] MEDS: SIMVASTATIN 40 MG TAB PO SCH (22:28)
[2023-07-22 06:56] LABS: INR 1.4 (0.9-1.1); Prothrombin Time 14.4 Seconds (9.0-12.0)
[2023-07-22 07:13] LABS: Albumin Globulin Ratio 1.1 (0.9-2); Albumin Level 3.4 gm/dl (3.4-5.0); BUN Creatinine Ratio 21.2 (10-20); Calcium 9.1 mg/dl (8.6-10.3); Creatinine Clr Calc Pharmacy 53.2 ml/min; Est GFR (African American) 51.9 ml/min; Est GFR (Non-African American) 44.8 ml/min; Globulin 3.1 gm/dl (2.5-4.0); Potassium 3.6 mmol/L (3.5-5.1); Total Protein 6.5 gm/dl (6.0-8.3)
[2023-07-22 07:26] LABS: Basophils # (auto) 0.04 K/uL (0.00-0.20); Basophils % (auto) 0.3 %; Eosinophils # (auto) 0.06 K/uL (0.00-0.50); Eosinophils % (auto) 0.5 %; Hematocrit (blood only) 37.8 % (42.0-52.0); Hemoglobin 12.3 g/dl (14.0-18.0); Immature Granulocytes # (auto) 0.04 K/uL (0.01-0.20); Immature Granulocytes % (auto) 0.3 %; Lymphocytes # (auto) 1.12 K/uL (1.20-3.40); Lymphocytes % (auto) 9.2 %; Mean Corpuscular Hemoglobin 28.3 pg (25.0-34.0); Mean Corpuscular Hgb Conc 32.5 g/dL (32.0-36.0); Mean Corpuscular Volume 87.1 fL (80.0-100.0); Mean Platelet Volume 10.6 fL (9.4-12.4); Monocytes # (auto) 1.32 K/uL (0.11-0.59); Monocytes % (auto) 10.8 %; Neutrophils % (auto) 78.9 %; Platelet Count 153 K/uL (130-400); RDW Coefficient of Variation 14.9 % (11.5-14.5); RDW Standard Deviation 48.1 fL (36.4-46.3); Red Blood Count 4.34 M/uL (4.70-6.10); White Blood Count 12.18 K/ul (4.8-10.8)
--- NOTE | 2023-07-22 09:10 | Urology Progress Note ---
Date of Service July 22, 2023 Assessment & Plan (1) Acute urinary retention: (2) Enlarged prostate with urinary obstruction: Plan Massive prostate with hematuria and urinary retention Siegel catheter was replaced last evening Has been draining well since that time No indication for CBI at present I think his acute bleeding has largely stopped and is simply resolving If he continues to clear and do well and is tolerating the catheter would plan for discharge home with a Siegel catheter in place for outpatient removal later this week Admission and Anticipated Discharge Date Admission Date: July 21, 2023 Subjective Did well after catheter exchange last night Had 1 episode of clot obstruction in the middle of the night and that required mild irrigation, he reports that it resolved the issue very rapidly No issues since that time Urine has continued to cleardeveloped dark color consistent with old blood Subjectively feels okay today Tolerating diet, relatively anxious to go home Physical Exam Physical Exam: Siegel catheter in place, translucent but maroon-colored urine Results & Data Vital Signs (Past 12 Hours) Vital Signs Temp Pulse Pulse Resp BP Pulse Ox O2 Del Method 07/22/23 07:19 36.8 C 97 H 14 120/76 93 Room Air 07/22/23 05:48 85 07/22/23 02:54 37.1 C 94 H 16 134/80 91 Room Air 07/22/23 01:32 105 H 07/21/23 23:46 37.3 C 100 H 18 130/76 91 Room Air PG Care Time/CCT Total # of Minutes Spent Total Time Spent with Patient: Total time spent is greater than 50% in coordination of care (as documented) at patient's floor/unit and/or counseling patient: Coding Level of Care Code 67712 SUB INP/OBS CARE 2/35MIN Diagnoses Acute urinary retention R33.8 Enlarged prostate with urinary obstruction N40.1; N13.8
--- NOTE | 2023-07-22 13:41 | Hospitalist Progress Note ---
Date of Service July 22, 2023 Assessment & Plan (1) Gross hematuria: Plan: 78-year-old male with past medically significant for type 2 diabetes, hypercholesteremia, history of gout, hypertension, permanent atrial fibrillation, obesity, CKD stage III, chondrocalcinosis due to pyrophosphate crystals, history of colonic polyps, PTSD comes because of urinary retention and gross hematuria. Patient presents with 6 days of hematuria and eventually developed urinary retention. In the ED, Siegel catheter was placed and patient was discharged home. Patient came back to the hospital as his Siegel catheter was blocked. Patient was placed on continuous bladder irrigation with exchange of Siegel catheter and was admitted to telemetry fr Gross hematuria Bladder outlet obstruction s/p Siegel Acute UTI Acute blood loss anemia Patient presents with 6 days of hematuria and eventually developed urinary retention. In the ED, Siegel catheter was placed and patient was discharged home. Patient came back to the hospital as his Siegel catheter was blocked. Hemoglobin down titrated from 15.3-12.3 CT abdomen pelvis in the ED showed moderately enlarged prostate with malpositioned Siegel balloon within the prostate. Distended bladder with adjacent stranding and moderate bilateral hydronephrosis next Urinalysis suggestive of infection Blood culture from 07/19no growth in 24 hours Urine culture no growth blood culture pending Urology on board; they recommend if patient continues to have clearing of urine and is tolerating catheter; plan to discharge home with Siegel catheter and removal as outpatient later in the week. History of A-fib EKG on admission shows atrial fibrillation On atenolol and Coumadin Holding Coumadin for hematuria Last dose of Coumadin 2 days ago Prior to presentation Discussed with patient regarding risks of stroke while he is off anticoagulation due to hematuria. He acknowledges the risks and verbalized his understanding. We discussed to hold off on anticoagulation till hematuria improves Type 2 diabetes Hold home medications Sliding scale Will monitor Hypertension Had an episode of hypotension holding lisinopril and chlorthalidone Continue atenolol with holding parameters Hold lisinopril and chlorthalidone Will monitor GABE on CKD stage III Baseline creatinine 1.3 Holding chlorthalidone lisinopril Will follow repeat labs Gout On allopurinol and colchicine Hyperlipidemia On statin DVT prophylaxis SCDs Disposition Med/telemetry. Full code Time spent evaluating patient, direct bedside care, chart review, placing orders, interpretation of diagnostic studies, discussion with consultants, patient, and family members, as well as other required patient management activities is 50 minutes Please note the above document was generated using voice recognition software. It may contain grammatical, syntax or spelling errors. Any formal questions or concerns about the content, text or information contained within the body of this dictation should be directly addressed to the provider for clarification Admission and Anticipated Discharge Date Admission Date: July 21, 2023 Subjective Last evening; patient has blockage of Siegel catheter for which urology needed to exchange the catheter. Today, no acute issues with Siegel catheter; urine red color with clots Review of Systems Review of Systems: All systems reviewed & are unremarkable except as noted in Subjective Physical Exam Physical Exam: Constitutional: Alert oriented x 3; not in distress. Respiratory: normal respiratory effort, lungs clear to auscultation, no wheeze, rales, rhonchi. Normal insp/exp effort, no accessory muscle use Cardiovascular: Irregular, no murmur, no edema Vessels: no JVD or carotid bruit Chest: normal inspection of chest Abdomen: Soft, nontender. Siegel in place draining red urine Musculoskeletal: no cyanosis or clubbing, extremities motor strength 5/5 Skin: no rashes, warm and dry normal turgor Neurologic: PERRL, EOMI, accommodation nl, no face palsy, no dysarthria CN's II- XI intact bilaterally and moves all extremities Psychiatric: A+Ox3, euthymic affect Results & Data Results & Data Vital Signs (Past 12 Hours) Vital Signs Temp Pulse Pulse Resp BP Pulse Ox O2 Del Method 07/22/23 10:56 36.8 C 97 H 15 119/76 93 Room Air 07/22/23 07:19 36.8 C 97 H 14 120/76 93 Room Air 07/22/23 05:48 85 07/22/23 02:54 37.1 C 94 H 16 134/80 91 Room Air
[2023-07-23 06:37] LABS: Basophils # (auto) 0.05 K/uL (0.00-0.20); Basophils % (auto) 0.6 %; Eosinophils # (auto) 0.24 K/uL (0.00-0.50); Eosinophils % (auto) 2.9 %; Hemoglobin 12.7 g/dl (14.0-18.0); Immature Granulocytes # (auto) 0.03 K/uL (0.01-0.20); Immature Granulocytes % (auto) 0.4 %; Lymphocytes # (auto) 1.22 K/uL (1.20-3.40); Lymphocytes % (auto) 14.8 %; Mean Corpuscular Hemoglobin 29.5 pg (25.0-34.0); Mean Corpuscular Hgb Conc 33.4 g/dL (32.0-36.0); Mean Corpuscular Volume 88.2 fL (80.0-100.0); Mean Platelet Volume 10.9 fL (9.4-12.4); Monocytes # (auto) 0.85 K/uL (0.11-0.59); Monocytes % (auto) 10.3 %; Neutrophils # (auto) 5.87 K/uL (1.40-6.50); Platelet Count 136 K/uL (130-400); RDW Coefficient of Variation 14.9 % (11.5-14.5); RDW Standard Deviation 48.5 fL (36.4-46.3); Red Blood Count 4.31 M/uL (4.70-6.10); White Blood Count 8.26 K/ul (4.8-10.8)
[2023-07-23 07:01] LABS: INR 1.2 (0.9-1.1); Prothrombin Time 12.6 Seconds (9.0-12.0)
[2023-07-23 07:22] LABS: Albumin Globulin Ratio 1.1 (0.9-2); Albumin Level 3.3 gm/dl (3.4-5.0); BUN Creatinine Ratio 20.9 (10-20); Bilirubin,Total 0.8 mg/dl (0.2-1.0); Creatinine Clr Calc Pharmacy 50.8 ml/min; Est GFR (Non-African American) 42.3 ml/min; Potassium 3.6 mmol/L (3.5-5.1); Total Protein 6.3 gm/dl (6.0-8.3)
--- NOTE | 2023-07-23 09:59 | Urology Progress Note ---
Date of Service July 23, 2023 Assessment & Plan (1) Enlarged prostate with urinary obstruction: (2) Acute urinary retention: Plan Catheter draining appropriately Extremely large prostate Balancing prostate size and trauma of catheterization with anticoagulation If he continues to drain appropriately even with persistent blood, he likely could be discharged home tomorrowMay benefit from some basic teaching about how to irrigate a catheter on his own at home Can have an outpatient follow-up to consider voiding trial Admission and Anticipated Discharge Date Admission Date: July 21, 2023 Subjective Reports that did quite well overnight No subjective complaints Still with some blood within his catheter, most of the urine is relatively clear but he had a few small clots today He reports that he feels closer to being able to go home but would like 1 more day in the hospital to observe and try to increase his activity Physical Exam Physical Exam: Bloody urine within the Siegel catheter, most of the urine is actually clear but he has a few small clots in the midst of the tubing but otherwise seems to be draining appropriately Results & Data Vital Signs (Past 12 Hours) Vital Signs Temp Pulse Pulse Resp BP Pulse Ox O2 Del Method 07/23/23 08:17 36.8 C 95 H 18 126/79 93 Room Air 07/23/23 00:31 90 07/22/23 23:39 36.7 C 99 H 16 97/64 L 93 Room Air PG Care Time/CCT Total # of Minutes Spent Total Time Spent with Patient: Total time spent is greater than 50% in coordination of care (as documented) at patient's floor/unit and/or counseling patient: Coding Level of Care Code 95580 SUB INP/OBS CARE 2/35MIN Diagnoses Enlarged prostate with urinary obstruction N40.1; N13.8 Acute urinary retention R33.8
--- NOTE | 2023-07-23 11:44 | Hospitalist Progress Note ---
Date of Service July 23, 2023 Assessment & Plan (1) Gross hematuria: Plan: 78-year-old male with past medically significant for type 2 diabetes, hypercholesteremia, history of gout, hypertension, permanent atrial fibrillation, obesity, CKD stage III, chondrocalcinosis due to pyrophosphate crystals, history of colonic polyps, PTSD comes because of urinary retention and gross hematuria. Patient presents with 6 days of hematuria and eventually developed urinary retention. In the ED, Siegel catheter was placed and patient was discharged home. Patient came back to the hospital as his Siegel catheter was blocked. Patient was placed on continuous bladder irrigation with exchange of Siegel catheter and was admitted to telemetry fr Gross hematuria Bladder outlet obstruction s/p Siegel Acute UTI Acute blood loss anemia Patient presents with 6 days of hematuria and eventually developed urinary retention. In the ED, Siegel catheter was placed and patient was discharged home. Patient came back to the hospital as his Siegel catheter was blocked. Hemoglobin down titrated from 15.3-12.7 CT abdomen pelvis in the ED showed moderately enlarged prostate with malpositioned Siegel balloon within the prostate. Distended bladder with adjacent stranding and moderate bilateral hydronephrosis Urinalysis suggestive of infection Blood culture from 07/19no growth in 24 hours Urine culture no growth blood culture - no growth Urology on board; they recommend if patient continues to have clearing of urine and is tolerating catheter; plan to discharge home with Siegel catheter and removal as outpatient later in the week. Discontinue antibiotics as patient blood culture and urine culture has been negative History of A-fib EKG on admission shows atrial fibrillation On atenolol and Coumadin Holding Coumadin for hematuria Last dose of Coumadin 2 days ago Prior to presentation Discussed with patient regarding risks of stroke while he is off anticoagulation due to hematuria. He acknowledges the risks and verbalized his understanding. We discussed to hold off on anticoagulation till hematuria improves.He will follow-up with anticoagulation clinic after discharge Type 2 diabetes Hold home medications Sliding scale Will monitor Hypertension Had an episode of hypotension holding lisinopril and chlorthalidone Continue atenolol with holding parameters Hold lisinopril and chlorthalidone Will monitor GABE on CKD stage III Baseline creatinine 1.3 Holding chlorthalidone lisinopril Gout On allopurinol and colchicine Hyperlipidemia On statin DVT prophylaxis SCDs Disposition Med/telemetry. Full code Please note the above document was generated using voice recognition software. It may contain grammatical, syntax or spelling errors. Any formal questions or concerns about the content, text or information contained within the body of this dictation should be directly addressed to the provider for clarification Admission and Anticipated Discharge Date Admission Date: July 21, 2023 Subjective Patient seen and examined at bedside He is comfortably lying in the bed; not in distress Siegel catheter still draining red urine No issues overnight Review of Systems Review of Systems: All systems reviewed & are unremarkable except as noted in Subjective Physical Exam Physical Exam: Constitutional: Alert oriented x 3; not in distress. Respiratory: normal respiratory effort, lungs clear to auscultation, no wheeze, rales, rhonchi. Normal insp/exp effort, no accessory muscle use Cardiovascular: Irregular, no murmur, no edema Vessels: no JVD or carotid bruit Chest: normal inspection of chest Abdomen: Soft, nontender. Siegel in place draining red urine Musculoskeletal: no cyanosis or clubbing, extremities motor strength 5/5 Skin: no rashes, warm and dry normal turgor Neurologic: PERRL, EOMI, accommodation nl, no face palsy, no dysarthria CN's II- XI intact bilaterally and moves all extremities Psychiatric: A+Ox3, euthymic affect Results & Data Results & Data Vital Signs (Past 12 Hours) Vital Signs Temp Pulse Pulse Resp BP Pulse Ox O2 Del Method 07/23/23 08:17 36.8 C 95 H 18 126/79 93 Room Air 07/23/23 00:31 90
[2023-07-24 06:57] LABS: Basophils # (auto) 0.05 K/uL (0.00-0.20); Basophils % (auto) 0.8 %; Eosinophils # (auto) 0.21 K/uL (0.00-0.50); Eosinophils % (auto) 3.3 %; Hematocrit (blood only) 37.6 % (42.0-52.0); Hemoglobin 12.2 g/dl (14.0-18.0); Immature Granulocytes # (auto) 0.01 K/uL (0.01-0.20); Immature Granulocytes % (auto) 0.2 %; Lymphocytes # (auto) 0.94 K/uL (1.20-3.40); Lymphocytes % (auto) 14.9 %; Mean Corpuscular Hemoglobin 28.8 pg (25.0-34.0); Mean Corpuscular Hgb Conc 32.4 g/dL (32.0-36.0); Mean Corpuscular Volume 88.9 fL (80.0-100.0); Mean Platelet Volume 10.2 fL (9.4-12.4); Monocytes # (auto) 0.62 K/uL (0.11-0.59); Monocytes % (auto) 9.9 %; Neutrophils # (auto) 4.46 K/uL (1.40-6.50); Neutrophils % (auto) 70.9 %; Platelet Count 161 K/uL (130-400); RDW Coefficient of Variation 14.9 % (11.5-14.5); RDW Standard Deviation 47.9 fL (36.4-46.3); Red Blood Count 4.23 M/uL (4.70-6.10); White Blood Count 6.29 K/ul (4.8-10.8)
[2023-07-24 07:02] LABS: INR 1.1 (0.9-1.1)
[2023-07-24 07:44] LABS: Albumin Globulin Ratio 1.1 (0.9-2); Albumin Level 3.3 gm/dl (3.4-5.0); BUN Creatinine Ratio 20.6 (10-20); Bilirubin,Total 0.6 mg/dl (0.2-1.0); Creatinine Clr Calc Pharmacy 57.1 ml/min; Est GFR (African American) 56.6 ml/min; Est GFR (Non-African American) 48.8 ml/min; Globulin 3.1 gm/dl (2.5-4.0); Potassium 3.7 mmol/L (3.5-5.1); Total Protein 6.4 gm/dl (6.0-8.3)
--- NOTE | 2023-07-24 10:36 | Urology Progress Note ---
Date of Service July 24, 2023 Assessment & Plan (1) Enlarged prostate with urinary obstruction: (2) Hematuria: (3) Acute urinary retention: Plan Extremely large prostate; Gross hematuria Patient afebrile and hemodynamically stable Labs reviewedWBC 6.29, hemoglobin 12.2, creatinine 1.36 Urine culture negative Blood cultures prelim no growth I was called to bedside this morning by nursing due to difficulty with irrigating the catheter and leakage around the catheter. Pt was bladder scanned for 5ml. Catheter irrigated at bedside with Dr. Prince with return of approximately 30cc of clot. Siegel is currently intact and draining light red urine. Continue to monitor urine output. Bladder scan PRN. Okay to hand irrigate as needed for clots, retention, suprapubic pain. Pt also noted leakage around catheter as well as intermittent bladder pain. Suspect he may be having bladder spasms. Will add Pyridium and Oxybutynin PRN bladder pain/spasms. Continue with Tamsulosin. Anticoagulation on hold. will follow along. Admission and Anticipated Discharge Date Admission Date: July 21, 2023 Subjective Pt seen at bedside this AM Awake, resting in bed on arrival No acute distress Siegel draining w/ minimal amount of hematuria Denies suprapubic pain/pressure. No fevers Review of Systems Constitutional: as per Subjective / HPI Genitourinary: + as per Subjective / HPI Physical Exam Constitutional: no acute distress Respiratory: no respiratory distress and no labored breathing Neurologic: moves all extremities and awake Psychiatric: A+Ox3, euthymic affect Genitourinary: Siegel catheter in place, draining with hematuria Results & Data Vital Signs (Past 12 Hours) Vital Signs Temp Pulse Pulse Resp BP Pulse Ox O2 Del Method 07/24/23 07:55 36.5 C 87 18 120/79 92 Room Air 07/24/23 05:57 79 07/24/23 03:49 37.1 C 92 H 18 111/73 93 Room Air 07/24/23 03:02 103 H 07/23/23 23:49 37 C 86 16 112/69 96 Room Air 07/23/23 23:09 36.8 C 92 H 22 128/74 95 Room Air PG Care Time/CCT Total # of Minutes Spent Total Time Spent with Patient: Total time spent is greater than 50% in coordination of care (as documented) at patient's floor/unit and/or counseling patient: Coding Level of Care Code 02577 SUB INP/OBS CARE 2/35MIN Diagnoses Enlarged prostate with urinary obstruction N40.1; N13.8 Hematuria R31.9 Acute urinary retention R33.8
[2023-07-24] MEDS: oxyBUTYnin chloride 5 MG TAB PO PRN (12:53)
[2023-07-24] MEDS: PHENAZOPYRIDINE HCL 200 MG TAB PO PRN (12:53)
--- NOTE | 2023-07-24 15:07 | Hospitalist Progress Note ---
Date of Service July 24, 2023 Assessment & Plan (1) Gross hematuria: Plan: 78-year-old male with past medically significant for type 2 diabetes, hypercholesteremia, history of gout, hypertension, permanent atrial fibrillation, obesity, CKD stage III, chondrocalcinosis due to pyrophosphate crystals, history of colonic polyps, PTSD comes because of urinary retention and gross hematuria. Patient presents with 6 days of hematuria and eventually developed urinary retention. In the ED, Siegel catheter was placed and patient was discharged home. Patient came back to the hospital as his Siegel catheter was blocked. Patient was placed on continuous bladder irrigation with exchange of Siegel catheter and was admitted to telemetry fr Gross hematuria Bladder outlet obstruction s/p Siegel Acute UTI Acute blood loss anemia Patient presents with 6 days of hematuria and eventually developed urinary retention. In the ED, Siegel catheter was placed and patient was discharged home. Patient came back to the hospital as his Siegel catheter was blocked. Hemoglobin down titrated from 15.3-12.7 CT abdomen pelvis in the ED showed moderately enlarged prostate with malpositioned Siegel balloon within the prostate. Distended bladder with adjacent stranding and moderate bilateral hydronephrosis Urinalysis suggestive of infection Blood culture from 07/19no growth in 24 hours Urine culture no growth blood culture - no growth Patient continues to have intermittent episode of blockades and issues with the Siegel catheter. Urology on board. Will need to flush intermittently. Continue to monitor for possible Siegel blockage History of A-fib EKG on admission shows atrial fibrillation On atenolol and Coumadin Holding Coumadin for hematuria Last dose of Coumadin 2 days ago Prior to presentation Discussed with patient regarding risks of stroke while he is off anticoagulation due to hematuria. He acknowledges the risks and verbalized his understanding. We discussed to hold off on anticoagulation till hematuria improves.He will follow-up with anticoagulation clinic after discharge Type 2 diabetes Hold home medications Sliding scale Will monitor Hypertension Had an episode of hypotension holding lisinopril and chlorthalidone Continue atenolol with holding parameters Hold lisinopril and chlorthalidone Will monitor GABE on CKD stage III Baseline creatinine 1.3 Holding chlorthalidone lisinopril Gout On allopurinol and colchicine Hyperlipidemia On statin DVT prophylaxis SCDs Disposition Med/telemetry. Full code Please note the above document was generated using voice recognition software. It may contain grammatical, syntax or spelling errors. Any formal questions or concerns about the content, text or information contained within the body of this dictation should be directly addressed to the provider for clarification Admission and Anticipated Discharge Date Admission Date: July 21, 2023 Subjective Patient seen and examined at bedside He is sitting up on the chair; not in distress Reports that he had issues with Siegel catheter in the morning. Urology evaluated bedside. Review of Systems Review of Systems: All systems reviewed & are unremarkable except as noted in Subjective Physical Exam Physical Exam: Constitutional: Alert oriented x 3; not in distress. Respiratory: normal respiratory effort, lungs clear to auscultation, no wheeze, rales, rhonchi. Normal insp/exp effort, no accessory muscle use Cardiovascular: Irregular, no murmur, no edema Vessels: no JVD or carotid bruit Chest: normal inspection of chest Abdomen: Soft, nontender. Siegel in place draining red urine Musculoskeletal: no cyanosis or clubbing, extremities motor strength 5/5 Skin: no rashes, warm and dry normal turgor Neurologic: PERRL, EOMI, accommodation nl, no face palsy, no dysarthria CN's II- XI intact bilaterally and moves all extremities Psychiatric: A+Ox3, euthymic affect Results & Data Results & Data Vital Signs (Past 12 Hours) Vital Signs Temp Pulse Pulse Resp BP Pulse Ox O2 Del Method 07/24/23 11:14 36.9 C 87 16 123/80 94 Room Air 07/24/23 07:55 36.5 C 87 18 120/79 92 Room Air 07/24/23 05:57 79 07/24/23 03:49 37.1 C 92 H 18 111/73 93 Room Air
[2023-07-24] MEDS: MoRPHine SULFATE 4 MG/ML 1 ML CARP\\VIAL IV PRN (20:11)
[2023-07-25 05:08] LABS: Basophils # (auto) 0.04 K/uL (0.00-0.20); Basophils % (auto) 0.6 %; Eosinophils # (auto) 0.25 K/uL (0.00-0.50); Eosinophils % (auto) 3.7 %; Hematocrit (blood only) 34.6 % (42.0-52.0); Hemoglobin 11.4 g/dl (14.0-18.0); Immature Granulocytes # (auto) 0.02 K/uL (0.01-0.20); Immature Granulocytes % (auto) 0.3 %; Lymphocytes # (auto) 1.33 K/uL (1.20-3.40); Lymphocytes % (auto) 19.7 %; Mean Corpuscular Hemoglobin 28.5 pg (25.0-34.0); Mean Corpuscular Hgb Conc 32.9 g/dL (32.0-36.0); Mean Corpuscular Volume 86.5 fL (80.0-100.0); Mean Platelet Volume 10.2 fL (9.4-12.4); Monocytes # (auto) 0.74 K/uL (0.11-0.59); Neutrophils # (auto) 4.36 K/uL (1.40-6.50); Neutrophils % (auto) 64.7 %; Platelet Count 166 K/uL (130-400); RDW Coefficient of Variation 14.6 % (11.5-14.5); RDW Standard Deviation 46.7 fL (36.4-46.3); White Blood Count 6.74 K/ul (4.8-10.8)
[2023-07-25 05:12] LABS: INR 1.1 (0.9-1.1); Prothrombin Time 11.6 Seconds (9.0-12.0)
[2023-07-25 05:25] LABS: BUN Creatinine Ratio 22.9 (10-20); Creatinine Clr Calc Pharmacy 65.9 ml/min; Est GFR (African American) 67.1 ml/min; Est GFR (Non-African American) 57.9 ml/min; Potassium 3.6 mmol/L (3.5-5.1)
--- NOTE | 2023-07-25 07:31 | Urology Progress Note ---
Date of Service July 25, 2023 Assessment & Plan (1) Enlarged prostate with urinary obstruction: (2) Hematuria: (3) Acute urinary retention: Plan Extremely large prostate; Gross hematuria Patient afebrile and hemodynamically stable Labs reviewedWBC 6.74, hemoglobin 11.4, creatinine 1.18 Urine culture negative Blood cultures prelim no growth Patient required manual irrigation of the catheter overnight. Siegel is currently intact and draining orange-colored urine. No visible clots at time of exam. Continue to monitor urine output. Bladder scan PRN. Okay to hand irrigate as needed for clots, retention, suprapubic pain. Continue Pyridium and Oxybutynin PRN bladder pain/spasms. Continue with Tamsulosin. Anticoagulation on hold. will follow along. Admission and Anticipated Discharge Date Admission Date: July 21, 2023 Subjective Pt seen at bedside this AM Awake, sitting in bedside chair on arrival No acute distress Patient required manual irrigation of the catheter overnight The catheter is currently draining orange-colored urine. No visible clots. He denies any pain or discomfort at present. Denies fever, chills, nausea, vomiting Review of Systems Constitutional: as per Subjective / HPI Genitourinary: + as per Subjective / HPI Physical Exam Constitutional: no acute distress Respiratory: no respiratory distress and no labored breathing Neurologic: moves all extremities and awake Psychiatric: A+Ox3, euthymic affect Genitourinary: Siegel catheter in place, draining orange colored urine Results & Data Vital Signs (Past 12 Hours) Vital Signs Temp Pulse Pulse Resp BP BP Pulse Ox 07/25/23 07:16 75 07/25/23 06:58 36.9 C 72 18 127/79 94 07/24/23 22:20 36.8 C 84 18 117/71 93 07/24/23 19:59 36.6 C 87 18 116/76 93 O2 Del Method 07/25/23 07:16 07/25/23 06:58 Room Air 07/24/23 22:20 Room Air 07/24/23 19:59 Room Air PG Care Time/CCT Total # of Minutes Spent Total Time Spent with Patient: Total time spent is greater than 50% in coordination of care (as documented) at patient's floor/unit and/or counseling patient: Coding Level of Care Code 18016 SUB INP/OBS CARE 2/35MIN Diagnoses Enlarged prostate with urinary obstruction N40.1; N13.8 Hematuria R31.9 Acute urinary retention R33.8
--- NOTE | 2023-07-25 13:29 | Hospitalist Progress Note ---
Date of Service July 25, 2023 Assessment & Plan (1) Gross hematuria: Plan: 78-year-old male with past medically significant for type 2 diabetes, hypercholesteremia, history of gout, hypertension, permanent atrial fibrillation, obesity, CKD stage III, chondrocalcinosis due to pyrophosphate crystals, history of colonic polyps, PTSD comes because of urinary retention and gross hematuria. Patient presents with 6 days of hematuria and eventually developed urinary retention. In the ED, Siegel catheter was placed and patient was discharged home. Patient came back to the hospital as his Siegel catheter was blocked. Patient was placed on continuous bladder irrigation with exchange of Siegel catheter and was admitted to telemetry fr Gross hematuria Bladder outlet obstruction s/p Siegel Acute UTI Acute blood loss anemia Patient presents with 6 days of hematuria and eventually developed urinary retention. In the ED, Siegel catheter was placed and patient was discharged home. Patient came back to the hospital as his Siegel catheter was blocked. Hemoglobin down titrated from 15.3-11.4 CT abdomen pelvis in the ED showed moderately enlarged prostate with malpositioned Siegel balloon within the prostate. Distended bladder with adjacent stranding and moderate bilateral hydronephrosis Urinalysis suggestive of infection Blood culture from 07/19no growth in 24 hours Urine culture no growth blood culture - no growth Patient continues to have intermittent episode of blockades and issues with the Siegel catheter. Urology on board. Will need to flush intermittently. Continue to monitor for possible Siegel blockage PT OT ordered History of A-fib EKG on admission shows atrial fibrillation On atenolol and Coumadin Holding Coumadin for hematuria Last dose of Coumadin 2 days ago Prior to presentation Discussed with patient regarding risks of stroke while he is off anticoagulation due to hematuria. He acknowledges the risks and verbalized his understanding. We discussed to hold off on anticoagulation till hematuria improves.He will follow-up with anticoagulation clinic after discharge Type 2 diabetes Hold home medications Sliding scale Will monitor Hypertension Had an episode of hypotension holding lisinopril and chlorthalidone Continue atenolol with holding parameters Hold lisinopril and chlorthalidone. Hold at discharge if BP continues to lower side. GABE on CKD stage III Baseline creatinine 1.3 Holding chlorthalidone lisinopril Gout On allopurinol and colchicine Hyperlipidemia On statin DVT prophylaxis SCDs Disposition Med/telemetry. Full code Please note the above document was generated using voice recognition software. It may contain grammatical, syntax or spelling errors. Any formal questions or concerns about the content, text or information contained within the body of this dictation should be directly addressed to the provider for clarification Admission and Anticipated Discharge Date Admission Date: July 21, 2023 Subjective Patient seen and examined at bedside He continues to have red colored urine. No blockage or suprapubic pain Review of Systems Review of Systems: All systems reviewed & are unremarkable except as noted in Subjective Physical Exam Physical Exam: Constitutional: Alert oriented x 3; not in distress. Respiratory: normal respiratory effort, lungs clear to auscultation, no wheeze, rales, rhonchi. Normal insp/exp effort, no accessory muscle use Cardiovascular: Irregular, no murmur, no edema Vessels: no JVD or carotid bruit Chest: normal inspection of chest Abdomen: Soft, nontender. Siegel in place draining red urine Musculoskeletal: no cyanosis or clubbing, extremities motor strength 5/5 Skin: no rashes, warm and dry normal turgor Neurologic: PERRL, EOMI, accommodation nl, no face palsy, no dysarthria CN's II- XI intact bilaterally and moves all extremities Psychiatric: A+Ox3, euthymic affect Results & Data Results & Data Vital Signs (Past 12 Hours) Vital Signs Temp Pulse Pulse Resp BP Pulse Ox O2 Del Method 07/25/23 11:05 36.7 C 81 18 122/76 96 Room Air 07/25/23 08:45 Room Air 07/25/23 07:16 75 07/25/23 06:58 36.9 C 72 18 127/79 94 Room Air
[2023-07-25] MEDS: LIDOCAINE 2% JELLY 5 ML TUBE EXT SCH (16:15)
[2023-07-26 06:34] LABS: Basophils # (auto) 0.04 K/uL (0.00-0.20); Basophils % (auto) 0.7 %; Eosinophils # (auto) 0.24 K/uL (0.00-0.50); Hematocrit (blood only) 33.1 % (42.0-52.0); Hemoglobin 10.9 g/dl (14.0-18.0); Immature Granulocytes # (auto) 0.02 K/uL (0.01-0.20); Immature Granulocytes % (auto) 0.3 %; Lymphocytes # (auto) 1.05 K/uL (1.20-3.40); Lymphocytes % (auto) 17.7 %; Mean Corpuscular Hemoglobin 28.6 pg (25.0-34.0); Mean Corpuscular Hgb Conc 32.9 g/dL (32.0-36.0); Mean Corpuscular Volume 86.9 fL (80.0-100.0); Mean Platelet Volume 10.4 fL (9.4-12.4); Monocytes # (auto) 0.61 K/uL (0.11-0.59); Monocytes % (auto) 10.3 %; Neutrophils # (auto) 3.97 K/uL (1.40-6.50); Platelet Count 177 K/uL (130-400); RDW Coefficient of Variation 14.6 % (11.5-14.5); RDW Standard Deviation 46.7 fL (36.4-46.3); Red Blood Count 3.81 M/uL (4.70-6.10); White Blood Count 5.93 K/ul (4.8-10.8)
[2023-07-26 06:44] LABS: BUN Creatinine Ratio 21.3 (10-20); Calcium 8.9 mg/dl (8.6-10.3); Creatinine Clr Calc Pharmacy 61.1 ml/min; Est GFR (African American) 61.4 ml/min; Potassium 3.7 mmol/L (3.5-5.1)
--- NOTE | 2023-07-26 13:12 | Urology Progress Note ---
Date of Service July 26, 2023 Assessment & Plan (1) Enlarged prostate with urinary obstruction: (2) Hematuria: (3) Acute urinary retention: Plan Extremely large prostate; Gross hematuria Patient afebrile and hemodynamically stable Labs reviewedWBC 5.93, hemoglobin 10.9, creatinine 1.27 Urine and blood cultures are negative. Siegel is currently intact and draining clear yellow urine. Continue to monitor. Okay to hand irrigate as needed for clots, retention, suprapubic pain. Continue Pyridium PRN and Oxybutynin PRN bladder pain/spasms. Continue with Tamsulosin and will add Finasteride. May be challenging balancing prostate size and trauma of catheterization with anticoagulation. Cardiology was consulted for recommendations. Continue supportive care. Patient will need to maintain Siegel catheter for at least 7-10 days. Will arrange voiding trial and follow-up with our service. Urology will follow along. Admission and Anticipated Discharge Date Admission Date: July 21, 2023 Subjective Patient seen at bedside Awake, resting in bed on arrival No acute distress Siegel draining clear yellow urine He denies any pain or discomfort at present. Denies fever, chills, nausea, vomiting Review of Systems Constitutional: as per Subjective / HPI Genitourinary: + as per Subjective / HPI Physical Exam Constitutional: no acute distress Respiratory: no respiratory distress and no labored breathing Neurologic: moves all extremities and awake Psychiatric: A+Ox3, euthymic affect Genitourinary: Siegel catheter in place, draining yellow urine Results & Data Vital Signs (Past 12 Hours) Vital Signs Temp Pulse Pulse Resp BP BP Pulse Ox 07/26/23 11:50 37.4 C 85 18 113/72 92 07/26/23 08:02 36.7 C 84 18 113/68 93 07/26/23 07:50 07/26/23 07:11 97 H 07/26/23 03:08 36.8 C 93 H 18 128/80 94 O2 Del Method 07/26/23 11:50 Room Air 07/26/23 08:02 Room Air 07/26/23 07:50 Room Air 07/26/23 07:11 07/26/23 03:08 Room Air PG Care Time/CCT Total # of Minutes Spent Total Time Spent with Patient: Total time spent is greater than 50% in coordination of care (as documented) at patient's floor/unit and/or counseling patient: Coding Level of Care Code 97159 SUB INP/OBS CARE 235MIN Diagnoses Enlarged prostate with urinary obstruction N40.1; N13.8 Hematuria R31.9 Acute urinary retention R33.8
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
--- NOTE | 2023-07-26 18:56 | Hospitalist Progress Note ---
Date of Service July 26, 2023 Assessment & Plan (1) Gross hematuria: Plan: 78-year-old male with past medical History significant for permanent atrial fibrillation on chronic warfarin, type 2 diabetes, hypercholesteremia, history of gout, hypertension, obesity, CKD stage III, chondrocalcinosis due to pyrophosphate crystals, history of colonic polyps, PTSD who presented because of urinary retention and gross hematuria. Patient presented with 6 days of hematuria and urinary retention. In the ED, Siegel catheter was placed and patient was initially discharged home. Patient came back to the hospital as his Siegel catheter was blocked. Patient was placed on continuous bladder irrigation with exchange of Siegel catheter and was admitted for further evaluation. Gross hematuria Bladder outlet obstruction s/p Siegel Acute UTI Acute blood loss anemia Patient presented with 6 days of hematuria and eventually developed urinary retention. In the ED, Siegel catheter was placed and patient was initially discharged home. Patient came back to the hospital as his Siegel catheter was blocked. Hemoglobin down titrated from 15.3-10.9, warfarin anticoagulation was discontinued CT abdomen pelvis in the ED showed moderately enlarged prostate with malpositioned Siegel balloon within the prostate. Distended bladder with adjacent stranding and moderate bilateral hydronephrosis Urinalysis suggestive of infection, urine Cx with NGTD Blood culture x 2 sets from 07/19no growth to date Urology was consulted, appreciate recs -Noted prostate was "extremely large" -Patient was placed on continuous bladder irrigation with exchange of Siegel catheter -Siegel currently intact and draining clear yellow urine -Notes permissible to hand irrigate as needed for clots, retention, suprapubic pain -Continue Pyridium PRN and Oxybutynin PRN bladder pain/spasms -Continue with Tamsulosin and Finasteride was added to begin on 07/26 -will need to maintain Siegel catheter for at least 7-10 days -After discharge, voiding trial and follow-up with Urology Continue to monitor H/H Improving History of A-fib EKG on admission noted atrial fibrillation On atenolol for rate control and Coumadin Held Coumadin for hematuria Last dose of Coumadin 2 days ago prior to presentation Cardiology consulted for further recs regarding anticoagulation, appreciated. -recommending observing off anticoagulation at this time -referrals for possible Watchman device and cardiology followup, watchman will require ability to tolerate antiplatelet therapy -started on aspirin 81mg daily to begin 07/26 -discussed DOAC switch, but will likely cause hematuria as well Continue to monitor GABE on CKD stage III Baseline creatinine 1.3 Held chlorthalidone, lisinopril Cr currently wnl Resume home meds as needed Hypertension Had an episode of hypotension, holding lisinopril and chlorthalidone Continue atenolol with hold parameters Continue to hold lisinopril and chlorthalidone at discharge if BP continues to be on lower side. Type 2 diabetes Held home medications ISS Will monitor Gout On allopurinol and colchicine Hyperlipidemia On statin DVT prophylaxis: SCDs currently in setting of hematuria, decreasing hgb Disposition: Home once medically stable Admission and Anticipated Discharge Date Admission Date: July 21, 2023 Subjective Pt was seen with partner at bedside. Extensive discussion about his anticoagulation and next steps. Agreeable to Cardiology consultation. Notes he is unsure who he follows with after his previous cdl b driver left but states follows annually with Belinda hopper. Review of Systems Review of Systems: All systems reviewed & are unremarkable except as noted in Subjective Physical Exam Physical Exam: General: Alert, oriented. No acute distress Skin: skin changes noted on lower extremities bilaterally Psych: Appropriate mood and affect Neuro: No gross deficits while sitting in the chair HEENT: NC/AT CV: Irregular Resp: Breath sounds clear bilaterally, no increased effort of breathing. Abdomen: Soft, nontender, nondistended. Extremities: edema in lower extremities bilaterally. Results & Data Results & Data Vital Signs (Past 12 Hours) Vital Signs Temp Pulse Pulse Resp BP BP Pulse Ox 07/26/23 08:02 36.7 C 84 18 113/68 93 07/26/23 07:50 07/26/23 07:11 97 H 07/26/23 03:08 36.8 C 93 H 18 128/80 94 07/25/23 23:16 36.8 C 89 18 119/73 96 07/25/23 23:06 86 O2 Del Method 07/26/23 08:02 Room Air 07/26/23 07:50 Room Air 07/26/23 07:11 07/26/23 03:08 Room Air 07/25/23 23:16 Room Air 07/25/23 23:06
[2023-07-27 06:27] LABS: Hematocrit (blood only) 34.9 % (42.0-52.0); Hemoglobin 11.3 g/dl (14.0-18.0); Mean Corpuscular Hemoglobin 28.3 pg (25.0-34.0); Mean Corpuscular Hgb Conc 32.4 g/dL (32.0-36.0); Mean Corpuscular Volume 87.3 fL (80.0-100.0); Mean Platelet Volume 10.1 fL (9.4-12.4); Platelet Count 198 K/uL (130-400); RDW Coefficient of Variation 14.6 % (11.5-14.5); RDW Standard Deviation 47.2 fL (36.4-46.3); White Blood Count 6.15 K/ul (4.8-10.8)
[2023-07-27 06:51] LABS: Albumin Globulin Ratio 1.1 (0.9-2); Albumin Level 3.6 gm/dl (3.4-5.0); Bilirubin,Total 0.5 mg/dl (0.2-1.0); Calcium 9.3 mg/dl (8.6-10.3); Creatinine Clr Calc Pharmacy 69.8 ml/min; Est GFR (African American) 71.5 ml/min; Est GFR (Non-African American) 61.7 ml/min; Globulin 3.2 gm/dl (2.5-4.0); Magnesium 2.1 mg/dl (1.7-2.4); Potassium 3.8 mmol/L (3.5-5.1); Total Protein 6.8 gm/dl (6.0-8.3)
[2023-07-27] MEDS: FINASTERIDE 5 MG TAB PO SCH (08:13)
[2023-07-27] MEDS: ASPIRIN 81 MG ECTAB PO SCH (08:58)
--- NOTE | 2023-07-27 10:17 | Urology Progress Note ---
Date of Service July 27, 2023 Assessment & Plan (1) Enlarged prostate with urinary obstruction: (2) Hematuria: (3) Acute urinary retention: Plan Extremely large prostate; Gross hematuria Patient afebrile and hemodynamically stable Labs reviewedWBC 6.15, hemoglobin 11.3, creatinine 1.12 Urine and blood cultures are negative. Siegel is currently intact and draining clear yellow urine. Continue to monitor. Okay to hand irrigate as needed for clots, retention, suprapubic pain. Continue Pyridium PRN and Oxybutynin PRN bladder pain/spasms. Continue with Tamsulosin and Finasteride. May be challenging balancing prostate size and trauma of catheterization with anticoagulation. Cardiology was consulted for recommendations. Pt started on Aspirin. Continue supportive care. Patient will need to maintain Siegel catheter for at least 7-10 days. Will arrange voiding trial and follow-up with our service. Urology will sign-off. Please call with any further questions, concerns, or changes in patient status. Admission and Anticipated Discharge Date Admission Date: July 21, 2023 Subjective Patient seen at bedside Awake, resting in bed on arrival No acute distress Siegel draining clear yellow urine He denies any pain or discomfort at present. Denies fever, chills, nausea, vomiting Review of Systems Constitutional: as per Subjective / HPI Genitourinary: + as per Subjective / HPI Physical Exam Constitutional: no acute distress Respiratory: no respiratory distress and no labored breathing Neurologic: moves all extremities and awake Psychiatric: A+Ox3, euthymic affect Genitourinary: Siegel draining clear yellow urine Results & Data Vital Signs (Past 12 Hours) Vital Signs Temp Pulse Pulse Resp BP BP Pulse Ox 07/27/23 07:55 36.8 C 84 16 111/72 95 07/27/23 07:48 82 07/27/23 03:37 36.6 C 84 20 122/83 95 07/26/23 22:44 77 O2 Del Method 07/27/23 07:55 Room Air 07/27/23 07:48 07/27/23 03:37 Room Air 07/26/23 22:44 PG Care Time/CCT Total # of Minutes Spent Total Time Spent with Patient: Total time spent is greater than 50% in coordination of care (as documented) at patient's floor/unit and/or counseling patient: Coding Level of Care Code 84188 SUB INP/OBS CARE 235MIN Diagnoses Enlarged prostate with urinary obstruction N40.1; N13.8 Hematuria R31.9 Acute urinary retention R33.8
--- NOTE | 2023-07-27 13:54 | Discharge Summary ---
Discharge Summary Date of Service July 27, 2023 Notes For Next Care Provider Please ensure followup with Urology for nieto care Please ensure followup with Cardiology- possible watchman device discussion and [place] [facility] [place], observing off anticoagulation at this time-WARFARIN/COUMADIN WAS DISCONTINUED Medication Changes From Visit Per Cardiology, DISCONTINUE WARFARIN Per Cardiology, continue aspirin 81mg daily Per Urology, continue Flomax 0.4mg daily and finasteride 5mg daily Lidocaine jelly and oxybutynin also prescribed for symptomatic nieto associated penile pain/bladder spasm relief Allopurinol renally dosed Discontinue home levofloxacin Admission HPI Per Admitting Provider 78-year-old male with past medically significant for type 2 diabetes, hypercholesteremia, history of gout, hypertension, permanent atrial fibrillation, obesity, CKD stage III, chondrocalcinosis due to pyrophosphate crystals, history of colonic polyps, PTSD comes because of urinary retention and gross hematuria.Patient states since last 6 days he is having hematuria and since yesterday is having urinary retention. He was in the ER earlier and was placed on Nieto and discharged home with Flomax , Levaquin and outpatient follow-up. After going home developed significant abdominal pain and seems his Nieto bag is blocked and came here. In the ER currently placed on continuous bladder irrigation. He had episode of hypotension in the ER. Denies any fevers. Normal bowel movements. Currently only has mild abdominal discomfort. Denies any chest pain or shortness of breath. No cough. No headaches. No runny nose or sore throat. Currently resting comfortably and hemodynamically stable. Past medical history. As mentioned above. Past surgical history. Cardioversion. Colonoscopy. Injection of lumbosacral spine. Tonsillectomy. Family history. Father had colon cancer. Sister had breast cancer. Mother had heart murmur. Social history. Quit smoking 1973. Smoked half pack a day for 10 years. No drug use. No alcohol use. Admission Exam Per Admitting Provider General- Not in distress Head- atraumatic Eyes- PERRL. ENT- oropharynx clear Neck- supple, no JVD. Lungs- clear to auscultation no wheezing or crackles. Heart- regular rhythm; no murmur, no gallop. Abdomen- normal bowel sounds, soft, nontender, no distension. Extremities- no pretibial edema, no erythema seen. Neuro- alert, oriented PERRL, EOMI; no facial palsy; no dysarthria; moves extremities. Principal Dx & Hospital Course #1 = Principal Diagnosis (1) Gross hematuria: 78-year-old male with past medical History significant for permanent atrial fibrillation on chronic warfarin, type 2 diabetes, hypercholesteremia, history of gout, hypertension, obesity, CKD stage III, chondrocalcinosis due to pyrophosphate crystals, history of colonic polyps, PTSD who presented because of urinary retention and gross hematuria. Patient presented with 6 days of hematuria and urinary retention. In the ED, Nieto catheter was placed and patient was initially discharged home. Patient came back to the hospital as his Nieto catheter was clogged. Patient was placed on continuous bladder irrigation with exchange of Nieto catheter and was admitted for further evaluation. Gross hematuria Bladder outlet obstruction s/p Nieto Acute UTI Acute blood loss anemia Patient presented with 6 days of hematuria and eventually developed urinary retention. In the ED, Nieto catheter was placed and patient was initially discharged home. Patient came back to the hospital as his Nieto catheter was clogged. Hemoglobin down titrated from 15.3-10.9, warfarin anticoagulation was discontinued CT abdomen pelvis in the ED showed moderately enlarged prostate with malpositioned Nieto balloon within the prostate. Distended bladder with adjacent stranding and moderate bilateral hydronephrosis Urinalysis suggestive of infection, urine Cx with NGTD Blood culture x 2 sets from 07/19no growth to date Urology was consulted, appreciate recs -Noted prostate was "extremely large" -Patient was placed on continuous bladder irrigation with exchange of Nieto catheter -Nieto currently intact and draining clear yellow urine -Notes permissible to hand irrigate as needed for clots, retention, suprapubic pain -Continue Pyridium PRN and Oxybutynin PRN for bladder pain/spasms -Continue with Tamsulosin and Finasteride (latter newly added) -will need to maintain Nieto catheter for at least 7-10 days -After discharge, voiding trial and follow-up with Urology Continue to monitor H/H Close PCP and Urology followup after discharge History of A-fib EKG on admission noted atrial fibrillation On atenolol for rate control and was on Coumadin for anticoagulation Held Coumadin in setting of gross hematuria and blood clots Last dose of Coumadin 2 days prior to presentation Cardiology consulted for further recs regarding anticoagulation, appreciated. -recommending observing off anticoagulation at this time-WARFARIN/COUMADIN WAS DISCONTINUED -referrals for possible Watchman device and cardiology followup, watchman will require ability to tolerate antiplatelet therapy -started on aspirin 81mg daily to begin 07/26 -discussed DOAC switch, but will likely cause hematuria as well Please ensure followup with Cardiology- possible watchman device discussion and followup as well [place] [facility] [place] on CKD stage III Baseline creatinine 1.3 Held chlorthalidone, lisinopril Renally adjusted other medications Cr currently wnl on discharge. Meds resumed on discharge PCP follow up Hypertension Had an episode of hypotension, held lisinopril and chlorthalidone for this reason as well Continued atenolol with hold parameters BP improved Continue home lisinopril and chlorthalidone on discharge Type 2 diabetes Held home medications ISS Resume home meds on discharge Gout On allopurinol and colchicine Allopurinol dose adjusted renally PCP followup Hyperlipidemia On statin, continue Discharge Exam General: Alert, oriented. No acute distress Skin: skin changes noted on lower extremities bilaterally Psych: Appropriate mood and affect Neuro: No gross deficits while sitting in the chair HEENT: NC/AT CV: Irregular Resp: Breath sounds clear bilaterally, no increased effort of breathing. Abdomen: Soft, nontender, nondistended. Extremities: edema in lower extremities bilaterally. Updated Medication List Medication Instructions Recorded Confirmed Type atenolol 100 mg tablet 100 mg PO BID 09/30/18 07/21/23 History chlorthalidone 25 mg tablet 25 mg PO DAILY 09/30/18 07/21/23 History cholecalciferol (vitamin D3) 25 1,000 unit PO DAILY 09/30/18 07/21/23 History mcg (1,000 unit) capsule lisinopril 40 mg tablet 40 mg PO QPM 09/30/18 07/21/23 History omega 4-cui-jtx-fish oil 1,000 mg 1 cap PO DAILY 09/30/18 07/21/23 History (120 mg-180 mg) capsule (Fish Oil) simvastatin 40 mg tablet 40 mg PO PM 09/30/18 07/21/23 History sildenafil 50 mg tablet 50 mg PO DAILY PRN Erectile 05/16/22 07/21/23 History Dysfunction Saccharomyces boulardii 250 mg 250 mg PO BID #20 caps 07/20/23 07/21/23 Rx capsule (Florastor) colchicine 0.6 mg tablet 0.6 mg PO QAM 07/20/23 07/21/23 History allopurinol 100 mg tablet 50 mg (1/2 x 100 mg) PO QAM #30 07/27/23 Rx tabs aspirin 81 mg tablet,delayed 81 mg PO QAM #30 tabs 07/27/23 Rx release finasteride 5 mg tablet 5 mg PO QAM #30 tabs 07/27/23 Rx lidocaine HCl 2 % mucosal jelly in 2 ml EXT BID #250 mL 07/27/23 Rx applicator oxybutynin chloride 5 mg tablet 5 mg PO BID PRN bladder spasms #30 07/27/23 Rx tabs tamsulosin 0.4 mg capsule 0.4 mg PO DAILY #30 caps 07/27/23 Rx Hospital Stay Data Consultations 07/21/23 02:54 ED Decision to Admit Stat 07/21/23 08:00 Consult Urology Routine 07/26/23 11:28 Consult Cardiology Routine Discharge Instructions Given to Patient (Per Discharging Provider) Mr. Beckman, We are discharging you home. Urology recommends discharge home with the nieto and following up with them in the office for further care. They also recommend that you continue with the medications tamsulosin and finasteride daily to help with your enlarged prostate. We are also discharging last home with the medications oxybutynin and lidocaine jelly to help with symptomatic relief of pain. You were also seen by Cardiology and they recommend that you stay of off the warfarin for now. They recommend that you take a daily aspirin and follow up in the office and with [facility] for consideration of the Watchman device. Please keep those followups as scheduled. Again, please keep close follow up with your primary care provider, Urology and Cardiology after discharge. Please do not hesitate to come back to the emergency room if your symptoms worsen or return. It was a pleasure taking care of you while you were here! Your Urologist left additional instructions for you below: Total Time Total Time Spent Total Time Spent (In Minutes): 75
== END 2023-07-27 16:12 | disposition home or self-care (01) | DRG 699 ==
LOC: ED 00:49 → 2W 03:58 → SUATTDRO 03:58 → 2W 04:59
DX: N18.30 Chronic kidney disease, stage 3 unspecified; I48.21 Permanent atrial fibrillation; R31.0 Gross hematuria; N13.8 Other obstructive and reflux uropathy; N17.9 Acute kidney failure, unspecified; Z79.899 Other long term (current) drug therapy; I12.9 Hypertensive chronic kidney disease with stage 1 through stage 4 chronic kidney disease, or unspecified chronic kidney disease; M10.9 Gout, unspecified; E11.22 Type 2 diabetes mellitus with diabetic chronic kidney disease; D62 Acute posthemorrhagic anemia; N40.1 Benign prostatic hyperplasia with lower urinary tract symptoms; N32.89 Other specified disorders of bladder; Z79.01 Long term (current) use of anticoagulants; R33.8 Other retention of urine; T83.098A Other mechanical complication of other urinary catheter, initial encounter; N13.6 Pyonephrosis

== ENCOUNTER 2023-07-27 20:18 | Observation (INO) ==
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
[2023-07-27] MEDS: SODIUM CHLORIDE 0.9% 500 ML IV ONE (22:52)
[2023-07-27] MEDS: MoRPHine SULFATE 4 MG/ML 1 ML CARP\\VIAL IV STA (22:52)
[2023-07-27] MEDS: ONDANSETRON INJ 2 MG/ML 2 ML VIAL IV STA (22:52)
[2023-07-27 23:03] LABS: Basophils # (auto) 0.04 K/uL (0.00-0.20); Basophils % (auto) 0.4 %; Eosinophils # (auto) 0.12 K/uL (0.00-0.50); Eosinophils % (auto) 1.3 %; Hematocrit (blood only) 35.7 % (42.0-52.0); Hemoglobin 11.8 g/dl (14.0-18.0); Immature Granulocytes # (auto) 0.06 K/uL (0.01-0.20); Immature Granulocytes % (auto) 0.7 %; Lymphocytes # (auto) 1.01 K/uL (1.20-3.40); Lymphocytes % (auto) 11.1 %; Mean Corpuscular Hemoglobin 28.9 pg (25.0-34.0); Mean Corpuscular Hgb Conc 33.1 g/dL (32.0-36.0); Mean Corpuscular Volume 87.3 fL (80.0-100.0); Mean Platelet Volume 10.2 fL (9.4-12.4); Monocytes # (auto) 0.63 K/uL (0.11-0.59); Monocytes % (auto) 6.9 %; Neutrophils # (auto) 7.27 K/uL (1.40-6.50); Neutrophils % (auto) 79.6 %; Platelet Count 210 K/uL (130-400); RDW Coefficient of Variation 14.6 % (11.5-14.5); RDW Standard Deviation 46.8 fL (36.4-46.3); Red Blood Count 4.09 M/uL (4.70-6.10); White Blood Count 9.13 K/ul (4.8-10.8)
[2023-07-27 23:19] LABS: Albumin Globulin Ratio 1.3 (0.9-2); Albumin Level 3.7 gm/dl (3.4-5.0); Bilirubin,Total 0.5 mg/dl (0.2-1.0); Calcium 9.2 mg/dl (8.6-10.3); Creatinine Clr Calc Pharmacy 65.5 ml/min; Est GFR (African American) 74.7 ml/min; Est GFR (Non-African American) 64.5 ml/min; Globulin 2.8 gm/dl (2.5-4.0); Potassium 4.3 mmol/L (3.5-5.1); Total Protein 6.5 gm/dl (6.0-8.3)
--- NOTE | 2023-07-27 23:25 | CT Scan Report ---
Exam(s): CT HEAD Without Contrast EXAM: CT Head Without Intravenous Contrast CLINICAL HISTORY: Reason for exam: Head trauma moderate-severe. TECHNIQUE: Axial computed tomography images of the head/brain without intravenous contrast. CTDI is 38.43 mGy and DLP is 1196.44 mGy-cm. Automated exposure control was utilized for the study. A dose lowering technique was utilized adhering to the principles of ALARA. COMPARISON: 06/21/13 FINDINGS: Brain: There is generalized parenchymal volume loss with periventricular and deep cerebral white matter hypoattenuation, compatible with chronic small vessel ischemic change. Zaidi-white matter differentiation is maintained. There is no hemorrhage, mass effect, parenchymal edema, or midline shift. Ventricles: Unremarkable. No hydrocephalus. Bones/joints: Calvarium is intact. No acute fracture. Soft tissues: Unremarkable. Vasculature: Intracranial atherosclerosis. Sinuses: Minimal mucosal thickening right maxillary sinus. Paranasal sinuses otherwise clear. Mastoid air cells: Unremarkable as visualized. No mastoid effusion. IMPRESSION: No acute intracranial process. Electronically signed by: Ryan Rm M.D. 07/27/23 23:24 PM
[2023-07-27 23:38] LABS: Troponin I High Sensitivity 9.8 pg/ml (0-20)
--- NOTE | 2023-07-27 23:43 | CT Scan Report ---
Exam(s): CT C SPINE EXAM: CT Cervical Spine Without Intravenous Contrast CLINICAL HISTORY: Reason for exam: Neck trauma. TECHNIQUE: Axial computed tomography images of the cervical spine without intravenous contrast. CTDI is 38.43 mGy and DLP is 1196.44 mGy-cm. Automated exposure control was utilized for the study. A dose lowering technique was utilized adhering to the principles of ALARA. COMPARISON: 06/21/13 FINDINGS: Bones are osteopenic. Vertebral body height and alignment are maintained. There is no acute fracture or traumatic subluxation. There are degenerative changes at the atlantodental joint. There is multilevel disc and uncovertebral joint degeneration. There is lower cervical/upper thoracic facet joint degeneration. There is multilevel mild central spinal canal narrowing, greatest at C6- C7. There are varying degrees bilateral foraminal narrowing, greatest in the mid and lower cervical spine. There is no prevertebral soft tissue swelling. IMPRESSION: No acute osseous findings. Electronically signed by: Ryan Rm M.D. 07/27/23 23:42 PM
[2023-07-27 23:55] LABS: Partial Thromboplastin Time 26 Seconds (21-31); Prothrombin Time 11.1 Seconds (9.0-12.0)
[2023-07-27] MEDS: METOPROLOL TARTRATE 1 MG/ML VIAL IV STA (23:59)
[2023-07-28 01:40] LABS: Thyroid Stimulating Hormone 6.078 uIu/ml (0.300-4.500)
[2023-07-28 02:28] LABS: T4 Free Thyroxine 0.95 ng/dl (0.61-1.60)
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
[2023-07-28] MEDS ORDERED: PHENAZOPYRIDINE HCL 100 MG TAB PO PRN (02:58)
[2023-07-28] MEDS ORDERED: PROMETHAZINE HCL 6.25 MG in SODIUM CHLORIDE 0.9% 50 ML IV PRN (02:59)
[2023-07-28] MEDS ORDERED: ACETAMINOPHEN 325 MG TAB PO PRN (02:59)
[2023-07-28] MEDS ORDERED: GLUCOSE 10 TAB/TUBE PO PRN (03:34)
[2023-07-28] MEDS ORDERED: GLUCAGON FOR INJ 1 MG VIAL SQ PRN (03:34)
[2023-07-28] MEDS ORDERED: CARBOHYDRATES FOR HYPOGLYCEMIA PO PRN (03:34)
[2023-07-28] MEDS ORDERED: GLUCOSE 40% GEL 15 GM TUBE PO PRN (03:34)
[2023-07-28] MEDS ORDERED: DEXTROSE 50% 50 ML SYRINGE IV PRN (03:34)
[2023-07-28] MEDS: INSULIN ASPART PER UNIT CHARGE SC SCH ×2 (03:51→17:17)
[2023-07-28] MEDS: PHENAZOPYRIDINE HCL 200 MG TAB PO STA (03:52)
[2023-07-28 04:18] LABS: BUN Creatinine Ratio 22.4 (10-20); Calcium 9.1 mg/dl (8.6-10.3); Est GFR (African American) 68.6 ml/min; Est GFR (Non-African American) 59.1 ml/min; Potassium 3.9 mmol/L (3.5-5.1)
[2023-07-28 04:19] LABS: Basophils # (auto) 0.04 K/uL (0.00-0.20); Basophils % (auto) 0.5 %; Eosinophils # (auto) 0.19 K/uL (0.00-0.50); Eosinophils % (auto) 2.2 %; Hematocrit (blood only) 34.8 % (42.0-52.0); Hemoglobin 11.4 g/dl (14.0-18.0); Immature Granulocytes # (auto) 0.11 K/uL (0.01-0.20); Immature Granulocytes % (auto) 1.3 %; Lymphocytes # (auto) 1.37 K/uL (1.20-3.40); Lymphocytes % (auto) 16.1 %; Mean Corpuscular Hemoglobin 28.6 pg (25.0-34.0); Mean Corpuscular Hgb Conc 32.8 g/dL (32.0-36.0); Mean Corpuscular Volume 87.4 fL (80.0-100.0); Monocytes # (auto) 0.65 K/uL (0.11-0.59); Monocytes % (auto) 7.6 %; Neutrophils # (auto) 6.14 K/uL (1.40-6.50); Neutrophils % (auto) 72.3 %; Platelet Count 204 K/uL (130-400); RDW Coefficient of Variation 14.6 % (11.5-14.5); RDW Standard Deviation 46.8 fL (36.4-46.3); Red Blood Count 3.98 M/uL (4.70-6.10)
[2023-07-28] MEDS: oxyBUTYnin chloride 5 MG TAB PO PRN (06:14)
[2023-07-28] MEDS: NSS + 20MEQ KCL 20 MEQ/1,000 ML BAG IV ONE (06:14)
[2023-07-28 07:02] LABS: Appearance Urine Cloudy (Clear); Bilirubin Urine 1+ (Negative); Blood Urine 3+ (Negative); Color Urine Red; Glucose Urine UA Negative (Negative); Ketones Urine Negative (Negative); Leukocyte Esterase Urine Trace (Negative); Nitrite Urine Positive (Negative); Protein Urine 3+ (Negative); Urobilinogen Urine Negative (Negative)
--- NOTE | 2023-07-28 07:14 | CT Scan Report ---
CT SCAN OF THE ABDOMEN AND PELVIS WITHOUT IV CONTRAST CLINICAL HISTORY: Hematuria. Generalized abdominal pain. COMPARISON STUDY: Abdominal CT dated 07/20/2023. TECHNIQUE: CT scan of the abdomen and pelvis is performed from the lung bases to the proximal femora. Images are reviewed in the axial, sagittal, and coronal planes. IV contrast was not administered for this examination. A dose lowering technique was utilized adhering to the principles of ALARA. CT DOSE: 1974.67 mGy.cm FINDINGS: Lung bases: The heart is enlarged and without pericardial effusion. There are coronary artery calcifi cations. There is elevation of right hemidiaphragm. Scarring/atelectasis is seen at the lung bases. N o airspace consolidation or pleural effusion is identified. There is a small hiatal hernia. Liver: The unenhanced liver is normal in size, contour, and attenuation. There is no intrahepatic ebenezer iary ductal dilatation. Gallbladder: There are numerous calcified gallstones with no CT evidence of acute cholecystitis. Spleen: Normal in size and attenuation. There are calcified splenic granulomas. Pancreas: Unremarkable. Adrenal glands: Unremarkable. Kidneys: The unenhanced kidneys demonstrate mild cortical atrophy and are without hydronephrosis. The re are no renal calculi identified. Numerous bilateral renal cysts measure up to 7 cm. Complex/hyperd ense cyst are again seen arising from the lower pole of left kidney. These measure up to 2.3 cm. Abdominal vasculature: The abdominal aorta is normal in course and caliber noting advanced atheroscle rotic calcification. Bowel: There is no bowel obstruction. The appendix is well-visualized and normal. There is a small d uodenal diverticulum. Peritoneum: There is no intraperitoneal free air or abdominal ascites. There is a fat-containing umbi lical hernia. Lymphadenopathy: None. Pelvic viscera: The prostate gland is markedly enlarged and heterogeneous. A Siegel catheter balloon i s inflated within the substance of the prostate gland. The bladder wall is thickened and trabeculated indicating chronic outlet obstruction. There is intraluminal gas and pericystic inflammation. Hyperd ense material within the gallbladder lumen likely represents blood clots. There are small bilateral f at-containing groin hernias. Skeletal structures: The skeletal structures are osteopenic. There is moderate lumbosacral spondylosi s. No lytic or blastic lesions are seen. IMPRESSION: 1. Marked prostatomegaly with evidence of chronic bladder outlet obstruction. 2. A Siegel catheter is inflated within the substance of the prostate gland. Repositioning is indicate d. 3. There is pericystic inflammation, as well as gas and hyperdense debris within the bladder lumen. T his likely represents blood clots. Correlate clinically for evidence of cystitis, possibly hemorrhagi c. Follow-up with urology is recommended to exclude the less likely possibility of underlying bladder mass lesion. 4. Cholelithiasis. 5. Cardiomegaly. 6. Additional findings as above. ACT 112: Negative or not required by law. Electronically signed by: Jeremias Mane M.D. 07/28/2023 7:13 AM
[2023-07-28 07:16] LABS: Epithelial Cell Urine 0-2 /hpf (0-2); RBC Urine >20 /hpf (0-2); WBC Urine >50 /hpf (0-5)
[2023-07-28 07:17] LABS: Bacteria Urine None Seen (None Seen)
--- NOTE | 2023-07-28 07:58 | XRay Report ---
SINGLE VIEW CHEST CLINICAL HISTORY: Hyponatremia FINDINGS: 2 AP, portable, semierect chest radiographs are compared to study dated 09/30/2018. The hear t is enlarged noting atherosclerotic calcification of the thoracic aorta. The pulmonary vasculature i s not congested. There is elevation of the right hemidiaphragm with associated right basilar atelecta sis. Mild atelectasis is also seen at the left lung base. No airspace consolidation or large pleural effusion is identified. No pneumothorax is seen. The structures are osteopenic. The bony thorax is gr ossly intact. Arthritic change is seen in the shoulders. IMPRESSION: Cardiomegaly with no active disease in the chest. ACT 112: Negative or not required by law. Electronically signed by: Jeremias Mane M.D. 07/28/2023 7:57 AM
[2023-07-28] MEDS: TAMSULOSIN HCL 0.4 MG CAP PO SCH (08:49)
[2023-07-28] MEDS: allopurinoL 100 MG TAB PO SCH (08:49)
[2023-07-28] MEDS: COLCHICINE 0.6 MG TAB PO SCH (08:50)
[2023-07-28] MEDS: FINASTERIDE 5 MG TAB PO SCH (08:50)
[2023-07-28] MEDS: ATENOLOL 50 MG TABLET PO SCH (08:51)
[2023-07-28] MEDS: SACCHAROMYCES BOULARDII 250 MG CAP PO SCH (08:51)
[2023-07-28] MEDS: oxyCODONE HCL IR 5 MG TAB (IMMEDIATE RELEASE) PO PRN (08:57)
[2023-07-28] MEDS: MoRPHine SULFATE 4 MG/ML 1 ML CARP\\VIAL IV STA ×2 (10:14)
[2023-07-28] MEDS: HYDROmorphone INJ 0.5 MG/0.5 ML SYR IV PRN (10:17)
[2023-07-28] MEDS: HYDROmorphone INJ 0.5 MG/0.5 ML SYR ONE (10:17)
--- NOTE | 2023-07-28 10:39 | Electrocardiogram Report ---
Test Reason : Blood Pressure : / mmHG Vent. Rate : 083 BPM Atrial Rate : 000 BPM P-R Int : 000 ms QRS Dur : 092 ms QT Int : 364 ms P-R-T Axes : 000 045 -08 degrees QTc Int : 427 ms Atrial fibrillation Abnormal ECG When compared with ECG of 17-MAY-2022 11:16, No significant change was found Confirmed by Artemio Miller ([id number]) on 07/28/2023 10:39:17 AM Referred By: REFERRED SELF Confirmed By:Phillip Miller
[2023-07-28] MEDS: CIPROFLOXACIN / D5W 400 MG/200 ML BAG IV SCH (12:09)
--- NOTE | 2023-07-28 12:33 | Hospitalist Progress Note ---
Date of Service July 28, 2023 Assessment & Plan (1) Hematuria: Plan 78-year-old male with past medical history significant for permanent atrial fibrillation on chronic warfarin (has since been discontinued during last admission), type 2 diabetes, hypercholesteremia, history of gout, hypertension, obesity, CKD stage III, chondrocalcinosis due to pyrophosphate crystals, history of colonic polyps, PTSD who came back on the same day after discharge with recurrent hematuria. Recurrent Hematuria hx bladder outlet obstruction/BPH currently with indwelling Nieto catheter CT abd/pelvis noting known marked prostatomegaly with evidence of chronic bladder outlet obstruction, nieto in substance of the prostate gland, gas and blood clots in bladder Rule out recurrent UTI, worsening obstruction given worsening spasm/abdominal pain, history urolithiasis Urine Cx pending Urology consulted once more, appreciate recs -empiric abx, pain control -pt declining catheter change at bedside, also declining further OR evaluation and treatment at this -per Urology, will monitor hematuria overnight and if persistent will discuss OR once more with pt in AM Continue to monitor H/H to ensure stability Previously started aspirin discontinued- discussed with Cardiology Dr Bell. Permanent A fib EKG on admission noted atrial fibrillation On atenolol for rate control and was on Coumadin for anticoagulation Coumadin was discontinued durin last admission Cardiology consulted for further recs regarding anticoagulation -recommending observing off anticoagulation at this time-WARFARIN/COUMADIN WAS DISCONTINUED -referrals for possible Watchman device and cardiology followup, watchman will require ability to tolerate antiplatelet therapy -started on aspirin 81mg daily to begin 07/26 but was discontinued with recurrent hematuria Case discussed with Cardiology, Dr Bell once more this admission. Recommending discontinuing aspirin and keeping outpt cardiology followups as previously scheduled. Please ensure followup with Cardiology after discharge Continue other home meds as ordered DVT prophylaxis. SCDs Re: Hematuria Full code Admission and Anticipated Discharge Date Admission Date: July 28, 2023 Subjective Pt was seen in the AM with daughter at bedside. Stated that his pain was well controlled at the time but noted off the chart pain prior to arrival. Review of Systems Review of Systems: All systems reviewed & are unremarkable except as noted in Subjective Physical Exam Physical Exam: General: Alert, oriented. No acute distress Skin: No noted rashes or bruises Psych: Appropriate mood and affect HEENT: NC/AT Chest: Nontender to palpation. CV: Irregular Resp: Breath sounds clear bilaterally, no increased effort of breathing. Abdomen: Soft, nontender, nondistended. Extremities: No edema in lower extremities bilaterally. Results & Data Results & Data Vital Signs (Past 12 Hours) Vital Signs Pulse Pulse Resp BP BP Pulse Ox Pulse Ox 07/28/23 08:16 92 H 07/28/23 05:39 99 H 24 154/103 H 94 07/28/23 04:34 98 H 17 93 07/28/23 04:33 96 H 18 158/111 H 93 07/28/23 04:00 97 H 22 146/117 H 96 07/28/23 04:00 97 H 21 146/117 H 91 07/28/23 03:56 95 07/28/23 03:00 94 H 21 159/91 H 98 07/28/23 02:28 91 H 07/28/23 01:00 178/125 H 07/28/23 01:00 84 20 143/100 H 98 O2 Del Method O2 Del Method O2 Flow Rate 07/28/23 08:16 07/28/23 05:39 Room Air 07/28/23 04:34 Room Air 07/28/23 04:33 Nasal Cannula 4 07/28/23 04:00 4 07/28/23 04:00 Room Air 07/28/23 03:56 Room Air 07/28/23 03:00 Nasal Cannula 4 07/28/23 02:28 07/28/23 01:00 07/28/23 01:00 Nasal Cannula 4 Diagnostic Findings Cervical Spine CT 07/27/23 21:31 Exam(s): CT C SPINE EXAM: CT Cervical Spine Without Intravenous Contrast CLINICAL HISTORY: Reason for exam: Neck trauma. TECHNIQUE: Axial computed tomography images of the cervical spine without intravenous contrast. CTDI is 38.43 mGy and DLP is 1196.44 mGy-cm. Automated exposure control was utilized for the study. A dose lowering technique was utilized adhering to the principles of ALARA. COMPARISON: 06/21/13 FINDINGS: Bones are osteopenic. Vertebral body height and alignment are maintained. There is no acute fracture or traumatic subluxation. There are degenerative changes at the atlantodental joint. There is multilevel disc and uncovertebral joint degeneration. There is lower cervical/upper thoracic facet joint degeneration. There is multilevel mild central spinal canal narrowing, greatest at C6- C7. There are varying degrees bilateral foraminal narrowing, greatest in the mid and lower cervical spine. There is no prevertebral soft tissue swelling. IMPRESSION: No acute osseous findings. Electronically signed by: Ryan Rm M.D. 07/27/23 23:[address] 07/27/23 21:31 Exam(s): CT HEAD Without Contrast EXAM: CT Head Without Intravenous Contrast CLINICAL HISTORY: Reason for exam: Head trauma moderate-severe. TECHNIQUE: Axial computed tomography images of the head/brain without intravenous contrast. CTDI is 38.43 mGy and DLP is 1196.44 mGy-cm. Automated exposure control was utilized for the study. A dose lowering technique was utilized adhering to the principles of ALARA. COMPARISON: 06/21/13 FINDINGS: Brain: There is generalized parenchymal volume loss with periventricular and deep cerebral white matter hypoattenuation, compatible with chronic small vessel ischemic change. Zaidi-white matter differentiation is maintained. There is no hemorrhage, mass effect, parenchymal edema, or midline shift. Ventricles: Unremarkable. No hydrocephalus. Bones/joints: Calvarium is intact. No acute fracture. Soft tissues: Unremarkable. Vasculature: Intracranial atherosclerosis. Sinuses: Minimal mucosal thickening right maxillary sinus. Paranasal sinuses otherwise clear. Mastoid air cells: Unremarkable as visualized. No mastoid effusion. IMPRESSION: No acute intracranial process. Electronically signed by: Ryan Rm M.D. 07/27/23 23:24 PM Chest X-Ray 07/27/23 23:45 SINGLE VIEW CHEST CLINICAL HISTORY: Hyponatremia FINDINGS: 2 AP, portable, semierect chest radiographs are compared to study dated 09/30/2018. The heart is enlarged noting atherosclerotic calcification of the thoracic aorta. The pulmonary vasculature is not congested. There is elevation of the right hemidiaphragm with associated right basilar atelectasis. Mild atelectasis is also seen at the left lung base. No airspace consolidation or large pleural effusion is identified. No pneumothorax is seen. The structures are osteopenic. The bony thorax is grossly intact. Arthritic change is seen in the shoulders. IMPRESSION: Cardiomegaly with no active disease in the chest. ACT 112: Negative or not required by law. Electronically signed by: Jeremias Mane M.D. 07/28/2023 7:57 AM Abdomen/Pelvis CT 07/28/23 01:27 CT SCAN OF THE ABDOMEN AND PELVIS WITHOUT IV CONTRAST CLINICAL HISTORY: Hematuria. Generalized abdominal pain. COMPARISON STUDY: Abdominal CT dated 07/20/2023. TECHNIQUE: CT scan of the abdomen and pelvis is performed from the lung bases to the proximal femora. Images are reviewed in the axial, sagittal, and coronal planes. IV contrast was not administered for this examination. A dose lowering technique was utilized adhering to the principles of ALARA. CT DOSE: 1974.67 mGy.cm FINDINGS: Lung bases: The heart is enlarged and without pericardial effusion. There are coronary artery calcifications. There is elevation of right hemidiaphragm. Scarring/atelectasis is seen at the lung bases. No airspace consolidation or pleural effusion is identified. There is a small hiatal hernia. Liver: The unenhanced liver is normal in size, contour, and attenuation. There is no intrahepatic biliary ductal dilatation. Gallbladder: There are numerous calcified gallstones with no CT evidence of acute cholecystitis. Spleen: Normal in size and attenuation. There are calcified splenic granulomas. Pancreas: Unremarkable. Adrenal glands: Unremarkable. Kidneys: The unenhanced kidneys demonstrate mild cortical atrophy and are without hydronephrosis. There are no renal calculi identified. Numerous bilateral renal cysts measure up to 7 cm. Complex/hyperdense cyst are again seen arising from the lower pole of left kidney. These measure up to 2.3 cm. Abdominal vasculature: The abdominal aorta is normal in course and caliber noting advanced atherosclerotic calcification. Bowel: There is no bowel obstruction. The appendix is well-visualized and normal. There is a small duodenal diverticulum. Peritoneum: There is no intraperitoneal free air or abdominal ascites. There is a fat-containing umbilical hernia. Lymphadenopathy: None. Pelvic viscera: The prostate gland is markedly enlarged and heterogeneous. A Nieto catheter balloon is inflated within the substance of the prostate gland. The bladder wall is thickened and trabeculated indicating chronic outlet obstruction. There is intraluminal gas and pericystic inflammation. Hyperdense material within the gallbladder lumen likely represents blood clots. There are small bilateral fat-containing groin hernias. Skeletal structures: The skeletal structures are osteopenic. There is moderate lumbosacral spondylosis. No lytic or blastic lesions are seen. IMPRESSION: 1. Marked prostatomegaly with evidence of chronic bladder outlet obstruction. 2. A Nieto catheter is inflated within the substance of the prostate gland. Repositioning is indicated. 3. There is pericystic inflammation, as well as gas and hyperdense debris within the bladder lumen. This likely represents blood clots. Correlate clinically for evidence of cystitis, possibly hemorrhagic. Follow-up with urology is recommended to exclude the less likely possibility of underlying bladder mass lesion. 4. Cholelithiasis. 5. Cardiomegaly. 6. Additional findings as above. ACT 112: Negative or not required by law. Electronically signed by: Jeremias Mane M.D. 07/28/2023 7:13 AM (1) Hematuria Hematuria type: gross Qualified Code(s): R31.0 - Gross hematuria
[2023-07-28] MEDS ORDERED: fentaNYL citrate PF 100 MCG/2 ML VIAL ONE (12:39)
[2023-07-28] MEDS ORDERED: PROPOFOL IV EMULSION 10 MG/ML 20 ML VIAL IV ONE (12:39)
[2023-07-28] MEDS ORDERED: LIDOCAINE 2% 2 ML VIAL/AMP(20MG/ML) INFIL ONE (12:39)
[2023-07-28] MEDS ORDERED: ONDANSETRON INJ 2 MG/ML 2 ML VIAL ONE (12:39)
[2023-07-28] MEDS: CEFEPIME 2,000 MG in SYRINGE 0 ML IV SCH (12:45)
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
[2023-07-28] MEDS: OXYBUTYNIN CHLORIDE XL 5 MG TABCR PO STA (21:42)
[2023-07-28] MEDS: lisinopril 40 MG TAB PO SCH (21:44)
[2023-07-28] MEDS: SIMVASTATIN 40 MG TAB PO SCH (21:45)
--- OUTSIDE RECORDS SUMMARY | 2023-07-29 07:22 | External Medical Summary | Summary of Care ---
Author Name Unknown Organization [facility] Address [address] [place] [address] Phone [phone] Care Team Providers Care Business Initiatives Manager Name Role Phone Jerrell Powell MD Primary Care Provider + Reason for Referral * Evaluate & Treat - Unlimited Visits (Within 3 days (urgent)) - Authorized Specialty Diagnoses / Procedures Referred By Joe hernandez Referred To Contact Hematology/Oncology / Hematology Oncology Diagnoses Monoclonal gammopathy Manohar Plascencia CRNP [address] [place] [address] Referral ID Status Reason Start Date Expiration Date Visits Requested Visits Authorized [id number] Authorized Specialty Services Required 07/26/2023 01/22/[phone] Question Answer Referral Priority Within 3 days (urgent) Where should this appointment be scheduled? Juan Reason for Referral Other - Please Comment Comments Monoclonal gammopathy Encounter Details Date Type Department Care Team ([facility] st Contact Info) Description 07/26/2023 Orders Only Access Center, [address] *DO NOT REMOVE THIS DEPARTMENT* [place] [id number] Request, External Referral Monoclonal gammopathy* Allergies Active Allergy Reactions Criticality Noted Date Comments Amlodipine Edema Other 03/18/2014 AT 5 AND 10 MG documented as of this encounter (statuses as of 07/26/2023) Medications Medication Sig Dispensed Refills Start Date End Date Status FISH OIL 1200 MG PO CAPS Take 2 Capsules by mouth in the morning. 0 Active VITAMIN D3 1000 UNIT PO CAPS one tablet by mouth daily 0 Active Sildenafil Citrate 50 MG Oral Tablet 1 Tablet. 0 05/17/19 23 Active Simvastatin 40 MG Oral Tablet (Zocor)Indications:Pure hypercholesterolemia TAKE 1 TABLET EVERY NIGHT AT BEDTIME 90 Tablet 3 10/28/19 23 Active Warfarin Sodium 5 MG Oral Tablet (Coumadin)Indications:Pe rsistent atrial fibrillation (HCC) TAKE ONE TABLET DAILY M/T/W/F/S/MON AND TAKE ONE AND ONE-HALF TABLETS ON MONDAY OR DIRECTED BY ANTICOAGULATION CLINIC 105 Tablet 3 01/26/20 23 Active Chlorthalidone 25 MG Oral Tablet (Hygroton)Indications:Es sential hypertension with goal blood pressure less than 140/90 TAKE 1 TABLET IN THE MORNING 90 Tablet 2 04/14/19 24 Active Atenolol 100 MG Oral Tablet (Tenormin)Indications:At rial fibrillation (HCC),HTN, goal below 130/80 Take 1 Tablet by mouth in the morning and 1 Tablet before bedtime. 180 Tablet 3 06/15/19 24 Active Lisinopril 40 MG Oral TabletIndications:HTN, goal below 130/80 Take 1 Tablet by mouth in the morning. 90 Tablet 3 06/15/19 24 Active Allopurinol 100 MG Oral Tablet (Zyloprim)Indications:Go ut Take 1 Tablet by mouth in the morning. 90 Tablet 1 06/20/19 24 Active Colchicine 0.6 MG Oral TabletIndications:Gout Take 1 Tablet by mouth in the morning. 90 Tablet 1 06/20/19 24 Active documented as of this encounter (statuses as of 07/26/2023) Active Problems Problem Noted Date Diagnosed Date Controlled type 2 diabetes bria centeno with stage 3 chronic kidney disease, without long-term current use of insulin 06/15/2023 Tophaceous gout of joint 07/07/2022 PTSD (post-traumatic stress disorder) 08/03/2021 Controlled type 2 diabetes m taryn with chronic kidney disease, without long-term current use of insulin 12/03/2020 Permanent atrial fibrillation 11/05/2019 Kidney disease, chronic, stage III (GFR 30-59 ml /min) 01/04/2018 Obesity, Class II, BMI 35-39.9, isolated (see ac tual BMI) 01/04/2018 Essential hypertension with goal blood pressure less than 140/90 10/20/2016 Erectile dysfunction 10/20/2016 History of colonic polyps 09/19/2014 Overview: 09/18/14: adenoma of the sigmoid colon, hyperplastic polyp transverse colon, repeat in 3 years ICD-10 update of inactive term Chondrocalcinosis due to pyrophosphate crystals 08/13/2009 Pure hypercholesterolemia 02/26/2009 Overview: Per Lipid Taxonomy. long-term current use of anticoagulant therapy 0 11/28/2007 Overview: ICD-10 update of inactive term documented as of this encounter (statuses as of 07/26/2023) Resolved Problems Problem Noted Date Diagnosed Date Resolved Date Benign hypertension with chr onic kidney disease, stage III 10/20/2016 03/04/2019 Kidney disease, chronic, sta ge III (GFR 30-59 ml/min) 11/18/2014 06/23/2017 Overview: 11/18/2014: est GFR 50.6 Inflamed seborrheic keratosis 07/09/2013 10/20/2016 Cutaneous skin tags 07/09/2013 10/21/19 17 [employer] Research Other*[id number] 06/28/2010 10/11/2013 Overview: PROJECT: #[id number], SPONSOR: Yasmine, PI: Shoaib Mccall MD SUMMARY: Observational registry to better understand how patients with A-Fib are cared for (utilization, effectiveness, safety of antithrombotic therapy for stroke prevention). Patients are recruited through an invitational letter. Study data will be collected (by research staff) from the EHR for at least 2 years on consenting patients at approximate 6-month intervals when seen at routine clinic visits. There is no study intervention. A BPA will fire in office visit notes and is connected to a flowsheet which has 2-4 questions that must be answered by the visit provider before the encounter can be closed. CONTACT: Jeremias Blankenship, [employer] Plant Operator Anticoagulation management encounter 11/28/2007 10/20/2016 Atrial fibrillation 10/09/2006 11/05/19 20 ADVANCE DIRECTIVE INFORMATION 03/17/2005 10/20/2016 Overview: No, Advance Directive brochure given to patient on April 25, 2005. . Mixed dyslipidemia 02/08/2001 9 Overview: Per Lipid Taxonomy. Paroxysmal SVT (supraventricular tachycardia) 07/06/2009 documented as of this encounter (statuses as of 07/26/2023) Immunizations Name Administration Dates Next Due COVID-19 mRNA, LNP-s, No Pre serve, 2-Dose Series (Moderna) 07/13/2020,06/15/2020 COVID-19, mRNA, LNP-s, PF, B ooster, 100mcg/0.5mg (Moderna) 02/20/2021 Pneumococcal Conjugate Vacc, 13 Valent (Prevnar) 06/18/2015 Pneumococcal Polysaccharide PPV23 (Pneumovax) ,02/28/2008 Season Influenza, Quad, PF, Adjuvanted, 65+ Yrs, IM (FLUAD) 01/08/2021,11/15/2019 Seasonal Influenza, Quadrivalent Hd (Fluzone Hd) 12/13/2022 Seasonal Influenza, Quadrivalent Hd, 65+ Yrs ,01/08/2021 TDAP (age 10 and older)(Boostrix) 07/02/2013 Varicella Zoster Vaccine (Adult) 07/02/2013,03/2013 Zoster Vaccine Recombinant (Shingrix) 01/25/2021 ,11/06/2020 documented as of this encounter Social History Tobacco Use Types Packs/Day Years Used Date Smoking Tobacco: Former Cigarettes 0.5 10 0 03/13/1963 - 03/13/1973 Smokeless Tobacco: Never Alcohol Use Standard Drinks/Week Comments No 0 (1 standard drink = 0.6 oz pur e alcohol) PHQ-2 Answer Date Recorded PHQ Adult Total Score 0 03/15/2022 Hunger Vital Sign Answer Date Recorded Within the past 12 months, y ou worried that your food would run out before you got the money to buy more. Never true 05/20/19 23 Within the past 12 months, t he food you bought just didn't last and you didn't have money to get more. Never true 05/19/2022 Sex and Gender Information Value Date Recorded Sex Assigned at Male 02/05/2019 2:44 PM EST Gender Identity Male 02/05/2019 2:44 PM EST Sexual Orientation Not on file Job Start Date Occupation Industry Not on file Not on file Not on file documented as of this encounter Plan of Treatment Upcoming Encounters Date Type Department Care Team (Late st Contact Info) Description 12/28/2023 3:00 PM EDT Office Visit General Internal Medicine [address] [place] [address] Jerrell Powell MD [address] [facility] [place] [address] Scheduled Referrals Name Type Priority Associated Diagnoses Orde r Schedule HEMATOLOGY/ONCOLOGY REFERRAL OP Referral Within 3 days (urgent) Monoclonal gammopathy Ordered: 07/26/2023 Health Maintenance Due Date Last Done Comments COVID-19 Vaccine ( season) 2022 02/20/2021, 07/13/2020, 06/15/2020 Depression Screening 03/15/2023 03/15/2022 DTaP,Tdap,and Td Vaccines (2 - Td or Tdap) 07/03/2023 07/02/2013 GFR 12/16/2023 06/16/2023, 100 05/2022, 06/22/2022, Additional history exists HbA1c 12/16/2023 06/16/2023, 100 05/2022, 03/15/2022, Additional history exists Diabetic Eye Exam 02/08/2024 02/07/2023, 02/11/2021 Diabetic Foot Exam 06/14/2024 06/15/2023, 0 03/15/2022, 04/06/2021 Albumin/Creatinine Ratio 06/15/2024 0405 024, 03/15/2022, 12/03/2020 CKD HGB USE SMARTSET 56539 06/15/202406/15, 06/16/2023, 06/22/2022, Additional history exists CKD PHOS USE SMARTSET 37378 06/15/2024 04/0 07/2023, 05/25/2022, 03/15/2022, Additional history exists Pneumococcal Vaccine: 65+ Years Completed 04/27/2017, 06/18/2015, 02/28/2008 Zoster Vaccines Completed 01/25/2021, 10/12, 07/02/2013, Additional history exists Influenza Vaccine (FLU shot) Completed 05/2022, 01/25/2022, 01/08/2021, Additional history exists GARDASIL-HPV IMMUNIZATION SERIES Aged Out No longer eligible based on patient's age to complete this topic Hepatitis B Aged Out No longer eligi ble based on patient's age to complete this topic MENINGOCOCCAL (MENACTRA/MENVEO) Aged Out No longer eligible based on patient's age to complete this topic documented as of this encounter Medical Devices Not on filedocumented as of this encounter Visit Diagnoses Diagnosis Monoclonal gammopathy- Primary Monoclonal paraproteinemia documented in this encounter Advance Directives Documents on File Type Date Recorded Patient Service Cleaner Expl anation Advance Directives and Living Will 06/29/2014 ADVANCE DIRECTIVE / LIVING WILL LIVING WILL Care Teams Business Initiatives Manager Relationship Specialty Start Date End Date Jerrell Powell MD [address] [place] [address] PCP - General Internal Medicine 12/03/20 documented as of this encounter
[2023-07-29] MEDS: oxyBUTYnin chloride 5 MG TAB PO PRN (08:28)
--- NOTE | 2023-07-29 08:34 | Urology Progress Note ---
Date of Service July 29, 2023 Assessment & Plan (1) Hematuria: Plan 78-year-old male with a history of a significantly enlarged prostate and recurrent hematuria. He was recently hospitalized and a Siegel balloon was noted to be in the prostatic fossa. This was a replaced by urology to a 20 Armenian coud. He required several hand irrigations but ultimately was discharged home on 07/27/2023. He came back to the hospital with hematuria and a CT scan confirmed that the Siegel balloon had again sunk into the prostatic fossa. CT scan also showed blood products and some air in the bladder but none in the bladder wall. At the bedside, I irrigated his catheter with 2 L of sterile water and removed a significant amount of clot, likely 70-80 cc. Urine is relatively light pink now and I do not think he necessitates OR at this time. I think he has stopped bleeding based on his Hgb and that most of the old clot has now been removed. Patient can have a diet. I think we monitor this 1 more day and if urine looks clear could be discharged home tomorrow and if is not then I suggested we go to the operating room. He was agreeable Please make n.p.o. at midnight 1 more time tonight Nursing can hand irrigate catheter as needed -Urology to follow Admission and Anticipated Discharge Date Admission Date: July 28, 2023 Subjective Afebrile with stable vitals. Labs today are pending. No irrigation required overnight. Patient reported finally getting some sleep. Physical Exam Physical Exam: General: Alert and oriented, no acute distress HEENT: Normocephalic, mucous membranes moist Pulmonary: Nonlabored respirations Abdomen: Nondistended : Catheter draining maroon urine Extremities: Moves all 4 spontaneously Neuro: No gross deficits Skin: Warm, dry, no rashes noted Results & Data Vital Signs (Past 12 Hours) Vital Signs Temp Pulse Resp BP BP Pulse Ox O2 Del Method 07/29/23 07:37 36.8 C 81 19 113/77 96 Room Air 07/29/23 02:47 37.0 C 75 20 115/71 95 Room Air 07/28/23 23:12 36.9 C 71 20 114/74 91 Room Air PG Care Time/CCT Total # of Minutes Spent Total Time Spent with Patient: Total time spent is greater than 50% in coordination of care (as documented) at patient's floor/unit and/or counseling patient: Coding Level of Care Code 61966 SUB INP/OBS CARE 235MIN Diagnoses Hematuria R31.0 Hematuria type: gross (1) Hematuria Hematuria type: gross Qualified Code(s): R31.0 - Gross hematuria
[2023-07-29 08:35] LABS: Hematocrit (blood only) 30.2 % (42.0-52.0); Hemoglobin 9.6 g/dl (14.0-18.0); Mean Corpuscular Hemoglobin 28.1 pg (25.0-34.0); Mean Corpuscular Hgb Conc 31.8 g/dL (32.0-36.0); Mean Corpuscular Volume 88.3 fL (80.0-100.0); Mean Platelet Volume 9.9 fL (9.4-12.4); Platelet Count 210 K/uL (130-400); RDW Coefficient of Variation 14.6 % (11.5-14.5); RDW Standard Deviation 47.2 fL (36.4-46.3); Red Blood Count 3.42 M/uL (4.70-6.10); White Blood Count 7.11 K/ul (4.8-10.8)
[2023-07-29 08:50] LABS: Albumin Globulin Ratio 1.2 (0.9-2); Albumin Level 3.4 gm/dl (3.4-5.0); BUN Creatinine Ratio 20.5 (10-20); Bilirubin,Total 0.6 mg/dl (0.2-1.0); Creatinine Clr Calc Pharmacy 61.5 ml/min; Est GFR (African American) 61.4 ml/min; Globulin 2.9 gm/dl (2.5-4.0); Magnesium 2.1 mg/dl (1.7-2.4); Phosphorus 2.9 mg/dl (2.5-4.9); Potassium 4.2 mmol/L (3.5-5.1); Total Protein 6.3 gm/dl (6.0-8.3)
--- NOTE | 2023-07-29 16:27 | Hospitalist Progress Note ---
Date of Service July 29, 2023 Assessment & Plan (1) Hematuria: Plan 78-year-old male with past medical history significant for permanent atrial fibrillation on chronic warfarin (has since been discontinued during last admission), type 2 diabetes, hypercholesteremia, history of gout, hypertension, obesity, CKD stage III, chondrocalcinosis due to pyrophosphate crystals, history of colonic polyps, PTSD who came back on the same day after discharge with recurrent hematuria. Recurrent Hematuria hx bladder outlet obstruction/BPH currently with indwelling Nieto catheter CT abd/pelvis noting known marked prostatomegaly with evidence of chronic bladder outlet obstruction, nieto in substance of the prostate gland, gas and blood clots in bladder Rule out recurrent UTI, worsening obstruction given worsening spasm/abdominal pain, history urolithiasis Urine Cx NGTD Urology consulted once more, appreciate recs -empiric abx, pain control -Urology monitoring for need for OR Continue to monitor H/H to ensure stability- pt's hgb has dropped from 11.4 to 9 .6 Previously started aspirin discontinued- discussed with Cardiology Dr Bell. Continue to monitor H/H Permanent A fib EKG on admission noted atrial fibrillation On atenolol for rate control and was on Coumadin for anticoagulation Coumadin was discontinued durin last admission Cardiology consulted for further recs regarding anticoagulation -recommending observing off anticoagulation at this time-WARFARIN/COUMADIN WAS DISCONTINUED -referrals for possible Watchman device and cardiology followup, watchman will require ability to tolerate antiplatelet therapy -started on aspirin 81mg daily to begin 07/26 but was discontinued with recurrent hematuria Case discussed with Cardiology, Dr Bell once more this admission. Recommending discontinuing aspirin and keeping outpt cardiology followups as previously scheduled. Please ensure followup with Cardiology after discharge Continue other home meds as ordered DVT prophylaxis. SCDs Re: Hematuria Full code Admission and Anticipated Discharge Date Admission Date: July 28, 2023 Subjective Pt was seen with partner at bedside. Noted pain controlled. States no OR today though he is willing to go if needed. Review of Systems Review of Systems: All systems reviewed & are unremarkable except as noted in Subjective Physical Exam Physical Exam: General: Alert, oriented. No acute distress Skin: No noted rashes or bruises Psych: Appropriate mood and affect HEENT: NC/AT Chest: Nontender to palpation. CV: Irregular Resp: Breath sounds clear bilaterally, no increased effort of breathing. Abdomen: Soft, nontender, nondistended. Extremities: edema in lower extremities bilaterally. Results & Data Results & Data Vital Signs (Past 12 Hours) Vital Signs Temp Pulse Pulse Resp BP BP Pulse Ox 07/29/23 15:50 36.8 C 75 19 101/63 93 07/29/23 14:53 76 07/29/23 11:02 36.6 C 82 19 111/65 96 07/29/23 08:14 69 07/29/23 07:37 36.8 C 81 19 113/77 96 O2 Del Method 07/29/23 15:50 Room Air 07/29/23 14:53 07/29/23 11:02 Room Air 07/29/23 08:14 07/29/23 07:37 Room Air (1) Hematuria Hematuria type: gross Qualified Code(s): R31.0 - Gross hematuria
[2023-07-30] MEDS: MELATONIN 3 MG TAB PO PRN (01:13)
[2023-07-30 05:03] LABS: Basophils # (auto) 0.05 K/uL (0.00-0.20); Basophils % (auto) 0.7 %; Eosinophils # (auto) 0.23 K/uL (0.00-0.50); Eosinophils % (auto) 3.4 %; Hematocrit (blood only) 28.2 % (42.0-52.0); Hemoglobin 9.4 g/dl (14.0-18.0); Immature Granulocytes # (auto) 0.03 K/uL (0.01-0.20); Immature Granulocytes % (auto) 0.4 %; Lymphocytes # (auto) 1.11 K/uL (1.20-3.40); Lymphocytes % (auto) 16.4 %; Mean Corpuscular Hemoglobin 29.2 pg (25.0-34.0); Mean Corpuscular Hgb Conc 33.3 g/dL (32.0-36.0); Mean Corpuscular Volume 87.6 fL (80.0-100.0); Mean Platelet Volume 10.1 fL (9.4-12.4); Monocytes # (auto) 0.66 K/uL (0.11-0.59); Monocytes % (auto) 9.7 %; Neutrophils # (auto) 4.69 K/uL (1.40-6.50); Neutrophils % (auto) 69.4 %; Platelet Count 198 K/uL (130-400); RDW Coefficient of Variation 14.6 % (11.5-14.5); RDW Standard Deviation 46.6 fL (36.4-46.3); Red Blood Count 3.22 M/uL (4.70-6.10); White Blood Count 6.77 K/ul (4.8-10.8)
[2023-07-30 05:17] LABS: BUN Creatinine Ratio 25.6 (10-20); Calcium 9.1 mg/dl (8.6-10.3); Creatinine Clr Calc Pharmacy 67.1 ml/min; Est GFR (African American) 67.8 ml/min; Est GFR (Non-African American) 58.5 ml/min; Phosphorus 3.1 mg/dl (2.5-4.9); Potassium 4.1 mmol/L (3.5-5.1)
--- NOTE | 2023-07-30 08:06 | Urology Progress Note ---
Date of Service July 30, 2023 Assessment & Plan (1) Hematuria: Plan 78-year-old male with a history of a significantly enlarged prostate and recurrent hematuria. He was recently hospitalized and a Siegel balloon was noted to be in the prostatic fossa. This was a replaced by urology to a 20 Lithuanian coud. He required several hand irrigations but ultimately was discharged home on 07/27/2023. He came back to the hospital with hematuria and a CT scan confirmed that the Siegel balloon had again sunk into the prostatic fossa. CT scan also showed blood products and some air in the bladder but none in the bladder wall. His urine is clear yellow now. No indication of any further irrigation or OR needed Patient can have a diet Patient can be discharged home with the catheter from a urologic perspective. The catheter now is 20 cc in the balloon which I hope will keep it from slipping into his prostatic fossa which has been it the issue previously. I discussed follow-up with the patient and we will likely set up a void trial early this week -Urology to sign off. Follow-up message sent. Admission and Anticipated Discharge Date Admission Date: July 28, 2023 Subjective No acute issues overnight. Catheter draining clear yellow urine Physical Exam Physical Exam: General: Alert and oriented, no acute distress HEENT: Normocephalic, mucous membranes moist Pulmonary: Nonlabored respirations Abdomen: Nondistended : 20 Lithuanian coud catheter draining clear yellow urine. Extremities: Moves all 4 spontaneously Neuro: No gross deficits Skin: Warm, dry, no rashes noted Results & Data Vital Signs (Past 12 Hours) Vital Signs Temp Pulse Resp BP BP Pulse Ox O2 Del Method 07/30/23 07:57 37.0 C 82 19 119/69 94 Room Air 07/30/23 02:15 36.6 C 89 18 123/71 95 Room Air 07/29/23 22:34 37.3 C 91 H 18 113/72 96 Room Air PG Care Time/CCT Total # of Minutes Spent Total Time Spent with Patient: Total time spent is greater than 50% in coordination of care (as documented) at patient's floor/unit and/or counseling patient: Coding Level of Care Code 61888 SUB INP/OBS CARE 2/35MIN Diagnoses Hematuria R31.0 Hematuria type: gross (1) Hematuria Hematuria type: gross Qualified Code(s): R31.0 - Gross hematuria
--- NOTE | 2023-07-30 09:26 | Discharge Summary ---
Discharge Summary Date of Service July 30, 2023 Notes For Next Care Provider please ensure close followup with Urology Please ensure close followup with Cardiology Medication Changes From Visit Per Cardiology- discontinue aspirin Admission HPI Per Admitting Provider History obtained from patient, family, and records. Medical history significant for A-fib status post cardioversion currently off Coumadin, valvular heart disease (moderate MR/TR, TTE 2022), pulmonary hypertension, hypertension, hyperlipidemia, DM2 diet-controlled, anxiety disorder, history bladder outlet obstruction/BPH currently with indwelling Nieto catheter, history urolithiasis, gout, past tobacco abuse. Recent confinement July 20-2023 for gross hematuria and urinary retention secondary to bladder outlet obstruction/enlarged prostate status post Nieto. Patient discharged with Nieto catheter as per urology recommendations. Outpatient urology follow-up recommended. Patient Coumadin for A-fib discontinued during confinement. Cardiology recommended outpatient referral for possible Watchman device. Hemoglobin noted to be 11 on discharge yesterday. Patient noted recurrent hematuria with worsening bladder spasm and abdominal pain upon arriving home yesterday. Subsequent fall in tub while getting ready to irrigate Nieto catheter. Resulting head trauma without LOC. Patient denies chest pain, SOB. No fever, no chills. Patient brought to ER by partner. CBI initiated at the ER. Transient wide-complex tachycardia noted on the monitor at the ED. Medical History as above Surgical History : Tonsillectomy Family History : Colon cancer, breast cancer, DM, heart disease Personal/Social history : Past tobacco abuse, no EtOH intake, retired factory employee Admission Exam Per Admitting Provider GENERAL: Comfortable, slightly anxious, obese, no respiratory distress SKIN: Pallor, warm HEENT: Partial alopecia, pale palpebral conjunctivae, no ptosis, dry buccal mucosa NECK : Supple, short neck, no tenderness CHEST : CTA, no tenderness HEART : Irregular, systolic murmur ABDOMEN: Some distention, minimal hypogastric tenderness EXTREMITIES : Minimal LE swelling, no LE tenderness, no other conspicuous deformities noted NEUROLOGIC : Coherent, no facial asymmetry, intentional tremors, gait and stance not assessed Principal Dx & Hospital Course #1 = Principal Diagnosis (1) Hematuria: Plan 78-year-old male with past medical history significant for permanent atrial fibrillation on chronic warfarin (has since been discontinued during last admission), type 2 diabetes, hypercholesteremia, history of gout, hypertension, obesity, CKD stage III, chondrocalcinosis due to pyrophosphate crystals, history of colonic polyps, PTSD who came back on the same day after discharge with recurrent hematuria. Recurrent Hematuria hx bladder outlet obstruction/BPH currently with indwelling Nieto catheter CT abd/pelvis noting known marked prostatomegaly with evidence of chronic bladder outlet obstruction, nieto in substance of the prostate gland, gas and blood clots in bladder Rule out recurrent UTI, worsening obstruction given worsening spasm/abdominal pain, history urolithiasis Urine Cx NGTD Urology consulted once more, appreciate recs -empiric abx, pain control -Urology monitoring for need for OR. Maryjo no OR, had bedside irrigation done by urologist. -On day of discharge Urology noted "The catheter now is 20 cc in the balloon which I hope will keep it from slipping into his prostatic fossa which has been it the issue previously. I discussed follow-up with the patient and we will likely set up a void trial early this week" -Urine without signs of gross blood on day of discharge Continue to monitor H/H to ensure stability- pt's hgb has dropped from 11.4 to 9.4 Previously started aspirin discontinued-per Cardiology, Dr Bell. Continue previously prescribed proscar and Flomax, prn oxybutynin and Lidocaine at the last recent discharge. Close PCP and Urology monitoring after discharge. Permanent A fib EKG on admission noted atrial fibrillation On atenolol for rate control and was on Coumadin for anticoagulation Coumadin was discontinued durin last admission Cardiology consulted for further recs regarding anticoagulation -recommending observing off anticoagulation at this time-WARFARIN/COUMADIN WAS DISCONTINUED -referrals for possible Watchman device and cardiology followup, watchman will require ability to tolerate antiplatelet therapy -started on aspirin 81mg daily to begin 07/26 but was discontinued with recurrent hematuria Case discussed with Cardiology, Dr Bell once more this admission. Recommending discontinuing aspirin and keeping outpt cardiology followups as previously scheduled. Please ensure followup with Cardiology after discharge Continue other home meds as ordered Discharge Exam General: Alert, oriented. No acute distress Skin: No noted rashes or bruises Psych: Appropriate mood and affect HEENT: NC/AT Chest: Nontender to palpation. CV: Irregular Resp: Breath sounds clear bilaterally, no increased effort of breathing. Abdomen: Soft, nontender, nondistended. Extremities: edema in lower extremities bilaterally. Updated Medication List Medication Instructions Recorded Confirmed Type atenolol 100 mg tablet 100 mg PO BID 09/30/18 07/28/23 History chlorthalidone 25 mg tablet 25 mg PO DAILY 09/30/18 07/28/23 History cholecalciferol (vitamin D3) 25 1,000 unit PO DAILY 09/30/18 07/28/23 History mcg (1,000 unit) capsule lisinopril 40 mg tablet 40 mg PO QPM 09/30/18 07/28/23 History omega 9-spj-[id number]-fish oil 1,000 mg 1 cap PO DAILY 09/30/18 07/28/23 History (120 mg-180 mg) capsule (Fish Oil) simvastatin 40 mg tablet 40 mg PO PM 09/30/18 07/28/23 History sildenafil 50 mg tablet 50 mg PO DAILY PRN Erectile 05/16/22 07/28/23 History Dysfunction Saccharomyces boulardii 250 mg 250 mg PO BID #20 caps 07/20/23 07/28/23 Rx capsule (Florastor) colchicine 0.6 mg tablet 0.6 mg PO QAM 07/20/23 07/28/23 History allopurinol 100 mg tablet 50 mg (1/2 x 100 mg) PO QAM #30 07/27/23 07/28/23 Rx tabs aspirin 81 mg tablet,delayed 81 mg PO QAM #30 tabs 07/27/23 07/28/23 Rx release finasteride 5 mg tablet 5 mg PO QAM #30 tabs 07/27/23 07/28/23 Rx lidocaine HCl 2 % mucosal jelly in 2 ml EXT BID #250 mL 07/27/23 07/28/23 Rx applicator oxybutynin chloride 5 mg tablet 5 mg PO BID PRN bladder spasms #30 07/27/23 07/28/23 Rx tabs tamsulosin 0.4 mg capsule 0.4 mg PO DAILY #30 caps 07/27/23 07/28/23 Rx Hospital Stay Data Consultations 07/28/23 02:27 ED Decision to Admit Stat 07/28/23 07:43 Consult Urology Routine Procedures Performed Operation Date: 07/28/23 07:00 <No data on this case meets the specified criteria> Diagnostic Imagining Performed 07/27/23 21:31 CT cervical spine wo con Stat CT head/brain wo con Stat 07/28/23 01:27 CT abd pelvis wo con Stat Cervical Spine CT 07/27/23 21:31 Exam(s): CT C SPINE EXAM: CT Cervical Spine Without Intravenous Contrast CLINICAL HISTORY: Reason for exam: Neck trauma. TECHNIQUE: Axial computed tomography images of the cervical spine without intravenous contrast. CTDI is 38.43 mGy and DLP is 1196.44 mGy-cm. Automated exposure control was utilized for the study. A dose lowering technique was utilized adhering to the principles of ALARA. COMPARISON: 06/21/13 FINDINGS: Bones are osteopenic. Vertebral body height and alignment are maintained. There is no acute fracture or traumatic subluxation. There are degenerative changes at the atlantodental joint. There is multilevel disc and uncovertebral joint degeneration. There is lower cervical/upper thoracic facet joint degeneration. There is multilevel mild central spinal canal narrowing, greatest at C6- C7. There are varying degrees bilateral foraminal narrowing, greatest in the mid and lower cervical spine. There is no prevertebral soft tissue swelling. IMPRESSION: No acute osseous findings. Electronically signed by: Ryan Rm M.D. 07/27/23 23:[address] 07/27/23 21:31 Exam(s): CT HEAD Without Contrast EXAM: CT Head Without Intravenous Contrast CLINICAL HISTORY: Reason for exam: Head trauma moderate-severe. TECHNIQUE: Axial computed tomography images of the head/brain without intravenous contrast. CTDI is 38.43 mGy and DLP is 1196.44 mGy-cm. Automated exposure control was utilized for the study. A dose lowering technique was utilized adhering to the principles of ALARA. COMPARISON: 06/21/13 FINDINGS: Brain: There is generalized parenchymal volume loss with periventricular and deep cerebral white matter hypoattenuation, compatible with chronic small vessel ischemic change. Zaidi-white matter differentiation is maintained. There is no hemorrhage, mass effect, parenchymal edema, or midline shift. Ventricles: Unremarkable. No hydrocephalus. Bones/joints: Calvarium is intact. No acute fracture. Soft tissues: Unremarkable. Vasculature: Intracranial atherosclerosis. Sinuses: Minimal mucosal thickening right maxillary sinus. Paranasal sinuses otherwise clear. Mastoid air cells: Unremarkable as visualized. No mastoid effusion. IMPRESSION: No acute intracranial process. Electronically signed by: Ryan Rm M.D. 07/27/23 23:24 PM Chest X-Ray 07/27/23 23:45 SINGLE VIEW CHEST CLINICAL HISTORY: Hyponatremia FINDINGS: 2 AP, portable, semierect chest radiographs are compared to study dated 09/30/2018. The heart is enlarged noting atherosclerotic calcification of the thoracic aorta. The pulmonary vasculature is not congested. There is elevation of the right hemidiaphragm with associated right basilar atelectasis. Mild atelectasis is also seen at the left lung base. No airspace consolidation or large pleural effusion is identified. No pneumothorax is seen. The structures are osteopenic. The bony thorax is grossly intact. Arthritic change is seen in the shoulders. IMPRESSION: Cardiomegaly with no active disease in the chest. ACT 112: Negative or not required by law. Electronically signed by: Jeremias Mane M.D. 07/28/2023 7:57 AM Abdomen/Pelvis CT 07/28/23 01:27 CT SCAN OF THE ABDOMEN AND PELVIS WITHOUT IV CONTRAST CLINICAL HISTORY: Hematuria. Generalized abdominal pain. COMPARISON STUDY: Abdominal CT dated 07/20/2023. TECHNIQUE: CT scan of the abdomen and pelvis is performed from the lung bases to the proximal femora. Images are reviewed in the axial, sagittal, and coronal planes. IV contrast was not administered for this examination. A dose lowering technique was utilized adhering to the principles of ALARA. CT DOSE: 1974.67 mGy.cm FINDINGS: Lung bases: The heart is enlarged and without pericardial effusion. There are coronary artery calcifications. There is elevation of right hemidiaphragm. Scarring/atelectasis is seen at the lung bases. No airspace consolidation or pleural effusion is identified. There is a small hiatal hernia. Liver: The unenhanced liver is normal in size, contour, and attenuation. There is no intrahepatic biliary ductal dilatation. Gallbladder: There are numerous calcified gallstones with no CT evidence of acute cholecystitis. Spleen: Normal in size and attenuation. There are calcified splenic granulomas. Pancreas: Unremarkable. Adrenal glands: Unremarkable. Kidneys: The unenhanced kidneys demonstrate mild cortical atrophy and are without hydronephrosis. There are no renal calculi identified. Numerous bilateral renal cysts measure up to 7 cm. Complex/hyperdense cyst are again seen arising from the lower pole of left kidney. These measure up to 2.3 cm. Abdominal vasculature: The abdominal aorta is normal in course and caliber noting advanced atherosclerotic calcification. Bowel: There is no bowel obstruction. The appendix is well-visualized and n ormal. There is a small duodenal diverticulum. Peritoneum: There is no intraperitoneal free air or abdominal ascites. There is a fat-containing umbilical hernia. Lymphadenopathy: None. Pelvic viscera: The prostate gland is markedly enlarged and heterogeneous. A Nieto catheter balloon is inflated within the substance of the prostate gland. The bladder wall is thickened and trabeculated indicating chronic outlet obstruction. There is intraluminal gas and pericystic inflammation. Hyperdense material within the gallbladder lumen likely represents blood clots. There are small bilateral fat-containing groin hernias. Skeletal structures: The skeletal structures are osteopenic. There is moderate lumbosacral spondylosis. No lytic or blastic lesions are seen. IMPRESSION: 1. Marked prostatomegaly with evidence of chronic bladder outlet obstruction. 2. A Nieto catheter is inflated within the substance of the prostate gland. Repositioning is indicated. 3. There is pericystic inflammation, as well as gas and hyperdense debris within the bladder lumen. This likely represents blood clots. Correlate clinically for evidence of cystitis, possibly hemorrhagic. Follow-up with urology is recommended to exclude the less likely possibility of underlying bladder mass lesion. 4. Cholelithiasis. 5. Cardiomegaly. 6. Additional findings as above. ACT 112: Negative or not required by law. Electronically signed by: Jeremias Mane M.D. 07/28/2023 7:13 AM Discharge Instructions Given to Patient (Per Discharging Provider) Mr. Beckman, You were seen by the Urologist and they stated that you are stable for discharge with close followup with their office early this week. We discontinued your aspirin. Please keep followup with Cardiology as scheduled. Please continue with your previously prescribed tamsulosin, finasteride and topical lidocaine and as needed oxybutynin previously prescribed to you at your last recent discharge. Please keep close follow up with your primary care provider after discharge. Please do not hesitate to come back to the emergency room if your symptoms wor sen or return. It was a pleasure taking care of you while you were here. Total Time Total Time Spent Total Time Spent (In Minutes): 75
== END 2023-07-30 11:57 | disposition home or self-care (01) ==
LOC: EDINP 20:18 → ED 20:18 → EDINP 07-28 03:34 → 4W 07-28 11:43